=== PATIENT | female | born 1940 | race Caucasian/White ===

== ENCOUNTER 2019-05-03 16:40 | Inpatient (IN) | payer MEDICARE, BC ==
[~2019-05-03] VITALS: Ht 162.6 cm; Wt 59.6 kg
[2019-05-03 18:45] VITALS: BP 187/93
--- NOTE | 2019-05-03 19:10 | NUR ---
Admission Note with Justification for Admission to [facility] Patient admitted to [facility] for protective oversight for emergency stabilization of acute psychiatric crisis. Pt admitted from: Hospital ER Mode of arrival: EMS Accompanied By: EMS Precipitating behaviors that initiated intake and admission: Agitation, paranoia, threatening family; threatened spouse with scissors, physically aggressive toward spouse- he is afraid to stay in house with her, police have been called because pt was entering neighbors houses, throwing things and breaking items in home. Description of failure of out patient attempts at stabilization in previous setting list behavior and medication trials: Taken to ER Behaviors and assessment findings upon admission: calm, pleasantly confused, cooperative Plan: Admit for protective oversight for adjustment and stabilization of medications, behaviors and mood. Intense treatment regimen including groups, medication adjustments, therapy, consistent regimen for ADL's, self care, and sleep hygiene. Daily monitoring by Inpatient staff, Psychiatry, and Medical Physician.
[2019-05-03] MEDS ORDERED: MAG HYDROX/AL HYDROX/SIMETH 30 ML ORAL.SUSP PO PRN (19:15)
[2019-05-03] MEDS ORDERED: MAGNESIUM HYDROXIDE 2,400 MG/30 ML ORAL.SUSP. PO PRN (19:15)
[2019-05-03] MEDS ORDERED: METHYL SALICYLATE/MENTHOL TOPICAL OINTMENT 57GM TUBE. TP PRN (19:15)
[2019-05-03] MEDS ORDERED: DILT180C64 PO (20:03)
[2019-05-03] MEDS ORDERED: OMEP40CA45 PO (20:03)
[2019-05-03] MEDS ORDERED: GLIP5TAB10 PO (20:03)
[2019-05-03] MEDS ORDERED: WARF-31 PO (20:03)
[2019-05-03] MEDS ORDERED: CLOP75TA PO (20:03)
[2019-05-03] MEDS ORDERED: TRAM-48 PO (20:03)
[2019-05-03] MEDS ORDERED: LOSA1TAB19 PO (20:03)
[2019-05-03] MEDS ORDERED: CYCL-331 PO (20:03)
[2019-05-03] MEDS ORDERED: CETI10TA16 PO (20:03)
[2019-05-03] MEDS ORDERED: ALBU2.5V8 IH (20:03)
[2019-05-03] MEDS ORDERED: NITR0.4T22 SL (20:03)
[2019-05-03] MEDS ORDERED: ASPI-630 PO (20:03)
[2019-05-03] MEDS ORDERED: CALC500T30 PO (20:03)
[2019-05-03] MEDS ORDERED: OLAN5TAB5 PO (20:03)
[2019-05-03] MEDS ORDERED: ACET500T68 PO (20:03)
[2019-05-03] MEDS ORDERED: TRIA15CR50 TP (20:03)
[2019-05-03] MEDS ORDERED: DONE5TAB7 PO (20:03)
[2019-05-03] MEDS ORDERED: LEVO125T5 PO (20:03)
[2019-05-03] MEDS ORDERED: CLOB15CR TP (20:03)
[2019-05-03] MEDS ORDERED: SPIR25TA PO (20:03)
[2019-05-03] MEDS ORDERED: ATOR40TA59 PO (20:03)
[2019-05-03] MEDS ORDERED: NITROGLYCERIN SUBLINGUAL 0.4 MG BOTTLE OF 25. SL PRN (20:15)
[2019-05-03] MEDS ORDERED: CETIRIZINE HCL 10 MG TABLET PO PRN (20:15)
[2019-05-03] MEDS: ACETAMINOPHEN 500 MG TABLET PO SCH (20:55)
[2019-05-03] MEDS: DONEPEZIL HCL 5 MG TABLET. PO SCH (20:55)
[2019-05-03] MEDS: ASPIRIN 81 MG TAB.CHEW PO SCH (20:55)
[2019-05-03 21:21] LABS: BASO % 0 % (0-3); EOS # 0.3 x10^3/uL (0.0-0.7); EOS % 4 % (0-3); HEMATOCRIT 43.1 % (36.0-47.0); HEMOGLOBIN 14.3 g/dL (12.0-15.5); LYMPH # 1.1 x10^3/uL (1.0-4.8); LYMPH % 13 % (24-48); MEAN CORPUSCULAR HEMOGLOBIN 28 pg (25-35); MEAN CORPUSCULAR HGB CONC 33 g/dL (31-37); MEAN CORPUSCULAR VOLUME 85 fL (79-100); MONO % 0 % (0-9); NEUT # 7.1 x10^3uL (1.8-7.7); NEUT % 82 % (31-73); PLATELET COUNT 277 x10^3/uL (140-400); RED BLOOD COUNT 5.06 x10^6/uL (3.50-5.40); RED CELL DISTRIBUTION WIDTH 15.7 % (11.5-14.5); WHITE BLOOD COUNT 8.6 x10^3/uL (4.0-11.0)
[2019-05-03 21:22] LABS: ALBUMIN 3.6 g/dL (3.4-5.0); ALBUMIN/GLOBULIN RATIO 0.9 (1.0-1.7); CALCIUM 9.2 mg/dL (8.5-10.1); CREATININE 0.8 mg/dL (0.6-1.0); GFR 69.6; MAGNESIUM 2.1 mg/dL (1.8-2.4); POTASSIUM 3.3 mmol/L (3.5-5.1); TOTAL BILIRUBIN 0.6 mg/dL (0.2-1.0); TOTAL PROTEIN 7.8 g/dL (6.4-8.2)
--- NOTE | 2019-05-03 21:27 | PDOC ---
Exam Note: Eren Note: Please also refer to the separate dictated note~for this date of service dictated separately. Discussed the patient with Nursing staff reviewed the chart.~Reviewed interim history and current functioning. Reviewed vital signs,~Labs/ Radiology~and current medications noted below. Continue current treatment with the changes noted in the dictated addendum note Assessment: Labs: Laboratory Tests Test 05/03/19 19:10 05/03/19 20:50 Glucose (Fingerstick) 119 mg/dL (70-99) H White Blood Count 8.6 x10^3/uL (4.0-11.0) Red Blood Count 5.06 x10^6/uL (3.50-5.40) Hemoglobin 14.3 g/dL (12.0-15.5) Hematocrit 43.1 % (36.0-47.0) Mean Corpuscular Volume 85 fL (79-100) Mean Corpuscular Hemoglobin 28 pg (25-35) Mean Corpuscular Hemoglobin Concent 33 g/dL (31-37) Red Cell Distribution Width 15.7 % (11.5-14.5) H Platelet Count 277 x10^3/uL (140-400) Neutrophils (%) (Auto) 82 % (31-73) H Lymphocytes (%) (Auto) 13 % (24-48) L Monocytes (%) (Auto) 0 % (0-9) Eosinophils (%) (Auto) 4 % (0-3) H Basophils (%) (Auto) 0 % (0-3) Neutrophils # (Auto) 7.1 x10^3uL (1.8-7.7) Lymphocytes # (Auto) 1.1 x10^3/uL (1.0-4.8) Monocytes # (Auto) 0.0 x10^3/uL (0.0-1.1) Eosinophils # (Auto) 0.3 x10^3/uL (0.0-0.7) Basophils # (Auto) 0.0 x10^3/uL (0.0-0.2) Platelet Estimate Pending Sodium Level 139 mmol/L (136-145) Potassium Level 3.3 mmol/L (3.5-5.1) L Chloride Level 101 mmol/L (98-107) Carbon Dioxide Level 30 mmol/L (21-32) Anion Gap 8 (6-14) Blood Urea Nitrogen 17 mg/dL (7-20) Creatinine 0.8 mg/dL (0.6-1.0) Estimated GFR (Cockcroft-Gault) 69.6 BUN/Creatinine Ratio 21 (6-20) H Glucose Level 141 mg/dL (70-99) H Calcium Level 9.2 mg/dL (8.5-10.1) Magnesium Level 2.1 mg/dL (1.8-2.4) Total Bilirubin 0.6 mg/dL (0.2-1.0) Aspartate Amino Transferase (AST) 12 U/L (15-37) L Alanine Aminotransferase (ALT) 14 U/L (14-59) Alkaline Phosphatase 103 U/L (46-116) Total Protein 7.8 g/dL (6.4-8.2) Albumin 3.6 g/dL (3.4-5.0) Albumin/Globulin Ratio 0.9 (1.0-1.7) L Current Medications: Meds: Current Medications Medications (Trade) Dose Ordered Sig/Margarita Route PRN Reason Start Time Stop Time Status Last Admin Dose Admin Donepezil HCl (Aricept) 5 mg HS PO 05/03/19 21:00 05/03/19 20:55 Acetaminophen (Tylenol) 500 mg BID PO 05/03/19 21:00 05/03/19 20:55 Aspirin (Children'S Aspirin) 81 mg HS PO 05/03/19 21:00 05/03/19 20:55 I have reviewed the current psychotropics carefully including drug interactions. Risk benefit ratio favors no change other than as noted in my dictated progress note. YG CASTILLO MD May 03, 2019 21:27
[2019-05-03 21:58] LABS: % ATYL 2 % (0-0); % BANDS 2 % (0-9); % EOS 4 % (0-5); % LYMPHS 14 % (24-48); % METAS 2 % (0-0); % MONOS 1 % (0-10); % SEGS 75 % (35-66)
[2019-05-03 22:00] LABS: ANISOCYTOSIS SLIGHT
[2019-05-03 22:01] LABS: PLT ESTIMATE ADEQUATE (ADEQUATE); POIKILOCYTOSIS SLIGHT
[2019-05-04 01:59] LABS: BILIRUBIN,URINE NEG (NEG); CLARITY,URINE HAZY; COLOR,URINE STRAW; GLUCOSE,URINE NEG (NEG)
[2019-05-04 02:00] LABS: BACTERIA,URINE FEW /HPF (0-FEW); NITRITE,URINE NEG (NEG); RBC,URINE 0 /HPF (0-2); SQUAMOUS EPITHELIAL CELL,UR FEW /LPF; UROBILINOGEN,URINE 0.2 mg/dL (0.2 mg/dL)
[2019-05-04 05:44] VITALS: BP 148/81
[2019-05-04] MEDS: LEVOTHYROXINE 125 MCG TABLET PO SCH (05:45)
[2019-05-04] MEDS ORDERED: FLU VAX QS 2019-20 (36MOS+)/PF 0.5 ML SYRINGE. VAX IM ONE (09:00)
[2019-05-04] MEDS: LOSARTAN 50 MG TABLET. PO SCH (10:00)
[2019-05-04] MEDS: ATORVASTATIN CALCIUM 20 MG TABLET PO SCH (10:01)
[2019-05-04] MEDS: SPIRONOLACTONE 25 MG TABLET PO SCH (10:02)
[2019-05-04] MEDS: hydroCHLOROthiazide 12.5 MG CAPSULE PO SCH (10:02)
[2019-05-04] MEDS: PANTOPRAZOLE 40 MG TABLET. PO SCH (10:03)
[2019-05-04] MEDS: ACETAMINOPHEN 500 MG TABLET PO SCH ×2 (10:03→19:32)
[2019-05-04] MEDS: CLOPIDOGREL BISULFATE 75 MG TABLET PO SCH (10:03)
[2019-05-04] MEDS: CALCIUM CARBONATE 500 MG TABLET PO SCH (10:07)
[2019-05-04] MEDS: glipiZIDE 5 MG TABLET PO SCH ×2 (10:07→17:33)
[2019-05-04 12:06] LABS: THYROXINE 7.4 ug/dL (4.5-12.0)
--- NOTE | 2019-05-04 12:44 | PN ---
DATE: 05/04/2019 SUBJECTIVE: The patient was seen today, met with the staff, chart reviewed, and also covering for Dr. Najera. Staff reports increased paranoia and also exhibiting manic-like behaviors, accusing of a man getting mixed up with her son and her and taking all her money. The patient is also confused, but able to interact fairly well on 1:1. The patient also has high energy, increased psychomotor activity. OBSERVATION: VITAL SIGNS: Temperature 97.8, blood pressure 148/81, pulse 66, respirations 18, O2 sat 92%. Slept only about 2 hours last night. LABORATORY DATA: The patient's lab reviewed. No significant abnormalities except slight increase in BUN 21. Glucose fluctuated from 119 to 196. The patient's liver enzymes were not elevated. The patient's urinalysis was within normal limits. MEDICATIONS: The patient's current medications include olanzapine 2.5 mg daily, Aricept 5 mg at night. The patient is also on levothyroxine 125 mcg daily, spironolactone 25 mg daily, Cardizem 24-hour CD 180 mg daily, and glipizide 5 mg b.i.d. The patient's behavior is appropriate during the assessment, but the patient is confused. She was mixing up with her son and her and the patient did not know the date or time and the patient thought [place] the [place]. The patient also exhibited pressured speech, expansive mood, racing thoughts, and also delusional thinking. The patient denied of feeling depressed and also suicidal or homicidal thoughts. The patient has been verbally aggressive at times. The patient apparently has a fixed delusion, but mostly that her son and is stealing all the money. ASSESSMENT: 1. Bipolar disorder, manic phase with psychotic symptoms. 2. Rule out dementia, most likely vascular with delusions. PLAN: The patient will be under observation. We will continue to evaluate the patient's progress and also change of medication accordingly. LENGTH OF STAY: 7-10 days. CASSANDRA BAHENA MD DR: ROGELIO/sherif JOB#: [id number] / [id number]
[2019-05-04 12:59] LABS: THYROID STIM HORMONE (TSH) 4.21 uIU/mL (0.358-3.740)
[2019-05-04 15:32] VITALS: BP 121/79
[2019-05-04] MEDS ORDERED: DEXTROSE 50% 25 GM / 50ML DISP.SYRIN. IV PRN (16:00)
[2019-05-04] MEDS: INSULIN LISPRO 300 UNITS/3 ML VIAL. SQ SCH (17:00)
[2019-05-04] MEDS: WARFARIN 5 MG TABLET. PO SCH (17:33)
[2019-05-04] MEDS: ASPIRIN 81 MG TAB.CHEW PO SCH (19:31)
[2019-05-04] MEDS: DONEPEZIL HCL 5 MG TABLET. PO SCH (19:31)
--- NOTE | 2019-05-04 19:32 | NUR ---
Pt. slept late, ate breakfast in dayroom at 1000 while I assessed and gave a.m. meds. Pt. has fixed delusion of her brother trying to kill her father and taking all the money. She also has worried about who is taking care of the pets. All attempts to reorient have failed. 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 Son has called twice today to check on his mother and provide info. Pt. is poor historian and totally confused with no accurate memory. Disoriented X4. Her and she did live together until she was recently hospitalized at [facility] for pneumonia. Then her forgetfulness increased and total disorientation began. Pt. has not returned to her baseline since admitted to [facility], per her son. would like to speak with her on the phone. And son has brought up her clothing, which all needs to be laundered before she can wear anything. After inital evaluation, she has been withdrawn to her room, or sitting quietly in the dayroom. Has refused to eat since early a.m. breakfast. Calm and compliant and cooperative, but suspicious of medications.
--- NOTE | 2019-05-04 21:31 | NUR ---
Nursing note: Assumed care of pt in the day room where she was visiting with a peer. She is pleasantly confused, compliant with meds and assessment, delusional about family. She believes her family are keeping money from her and speaks of her brother trying to kill her father. She also thinks she lives "just right over there." She has no c/o pain, no negative behaviors.
--- NOTE | 2019-05-04 22:53 | CONS ---
DATE OF CONSULTATION: 05/04/2019 REASON FOR CONSULTATION: Medical management. HISTORY OF PRESENT ILLNESS: The patient is a 78-year-old female patient who lives at home and was evaluated at [facility] and was [facility] on account of increased confusion over the last 2 weeks, leaving house and entering neighbor's house, swearing at family, delusional, thinks that there is a large sum of money that family is hiding that she is entitled to. States that she wants to slit the 's throat, threatened to attack family with scissors, delusional, thinks she is a nurse, refusing medication, all this in a background of impulse control disorder. PAST MEDICAL HISTORY: Significant for atrial fibrillation, osteoarthritis, eczema, chronic obstructive pulmonary disease, coronary artery disease, DVT, hyperlipidemia, hypertension, hypothyroidism, macular degeneration, myocardial infarction, obstructive sleep apnea, TIA, and diabetes mellitus. PAST SURGICAL HISTORY: Unremarkable. ALLERGIES: She is allergic to LISINOPRIL AND MOXIFLOXACIN. MEDICATIONS: She is currently on following medications: She is on cetirizine 10 mg once a day, Aricept 5 mg at bedtime, albuterol sulfate 2 puffs every 4 hours as needed, cyclobenzaprine 10 mg 3 times a day as needed, warfarin 5 mg daily with supper, Plavix 75 mg once a day, atorvastatin calcium 40 mg daily, nitroglycerin 0.4 mg sublingually every 5 minutes x 3, diltiazem ER 180 mg once a day, losartan/hydrochlorothiazide 50/12.5 mg once a day, spironolactone 25 mg once a day, aspirin 81 mg once a day, tramadol 50 mg every 6 hours, acetaminophen 500 mg twice a day, olanzapine for Zyprexa 2.5 mg daily. She is also on omeprazole 40 mg once a day, calcium carbonate 500 mg daily, glipizide 5 mg twice a day with meals, levothyroxine sodium 125 mcg once a day, clobetasol propionate cream applied topically twice a day and triamcinolone acetonide cream applied topically twice a day. FAMILY HISTORY: Noncontributory. SOCIAL HISTORY: She is , has 1 son. Did have a son that committed suicide years ago. She quit smoking about 20 years ago when she started smoking recently. Drinks alcohol occasionally. She used to be a nurse. PHYSICAL EXAMINATION: GENERAL: When I examined her, the patient was resting flat in bed comfortably, in no apparent distress. No pallor, jaundice, cyanosis or thyromegaly. No jugular venous distention. No lower limb edema. VITAL SIGNS: Her heart rate was 98, blood pressure 121/79, temperature was 97.2, respiratory rate was 16, and oxygen saturation was 93%. HEAD, EYES, EARS, NOSE AND THROAT: Showed normocephalic, atraumatic. NECK: Supple. HEART: Showed normal first and second heart sounds with no gallop, rub or murmur. CHEST: Clear to auscultation. No crepitation or rhonchi. ABDOMEN: Distended, soft, nontender. NEUROLOGIC: She is awake, alert and definitely delusional, but without any obvious lateralizing sign. All cranial nerves intact. EXTREMITIES: She moves extremities without difficulty. She ambulates without assistance or assistive devices. LABORATORY DATA: Her lab work showed a white cell count of 8600, hemoglobin 14, hematocrit 43, MCV 85 and platelet count 277,000 with normal manual differential. Her chemistry showed a serum sodium of 139, potassium 3.3, chloride 101, bicarbonate 30, anion gap of 8, BUN 17, creatinine 0.8, estimated GFR was 69 mL per minute. Her glucose of 141, calcium of 9.2, magnesium 2.1. Total bilirubin, AST, ALT, alkaline phosphatase were normal. Her total protein was 7.8, albumin 3.6. Her serum iron 47, TIBC was high at 305 and iron saturation was 15%. Her total T4 and total T3 are well within normal range. TSH was also normal at 4.120. Her serum triglycerides 253, total cholesterol 245, LDL was 165, VLDL was 50, HDL was 30 and the ratio was 8. Her prothrombin time and INR are within normal range. Urinalysis was essentially unremarkable. IMPRESSION: In summary, this is a 78-year-old female patient who normally lives at home with her and was evaluated at [facility] and was transferred to this facility on account of increased confusion over the last 2 weeks, leaving the house and entering the neighbor's houses, swearing at the family, delusional, thinks that there is a large sum of money the family is hiding that she is entitled. States that she wants to slit 's throat and threatened the family with scissors, delusional, thinks she is a nurse and refusing medication, all this in a background of obviously impulse control disorder. She is here for inpatient psychiatric stabilization. Medically, she has a multitude of medical problems that seemed to be stable. She has atrial fibrillation that is rate controlled and for which she is on warfarin and rate is controlled with diltiazem. Hypertension, hyperlipidemia and DVT for which she is also on Coumadin. Senile macular degeneration, hypothyroidism for which she is also on levothyroxine. So, all in all, the patient seems to be medically stable. The only abnormal finding is that her serum potassium is low at 3.3 and her INR was supratherapeutic at 1.1. PLAN: My plan is to adjust her Coumadin, started on potassium supplement and to achieve at least an INR of 2-2.5. Thank you, Dr. Najera for allowing me to participate in the care of this patient. DEMARCO CARY MD DR: JESSICA/sherif JOB#: [id number] / [id number]
--- NOTE | 2019-05-05 04:00 | EKG ---
[address] [address] Test Date: 2019-05-04 Test Time: 09:34:01 Pat Name: WENDY SCHWARTZ Department: Room: [address] [place] [address] Gender: F Tech Intern: WILLIAM : 1940 Requested By: YG CASTILLO Order Number: [id number] Reading MD: Yogesh Singh MD Measurements Intervals [place] Rate: 66 P: CA: QRS: 15 QRSD: 76 T: 163 QT: 416 QTc: 438 Interpretive Statements SR CONSIDER LATERAL ISCHEMIA Electronically Signed On 06-05-2019 9:59:49 ASSISTED LIVING ADMINISTRATOR by Yogesh Singh MD
[2019-05-05] MEDS: LEVOTHYROXINE 125 MCG TABLET PO SCH (04:45)
[2019-05-05 05:37] VITALS: BP 101/56
[2019-05-05 05:37] LABS: HEMOGLOBIN A1C 7.8 % (4.8-5.6)
[2019-05-05] MEDS: INSULIN LISPRO 300 UNITS/3 ML VIAL. SQ SCH ×3 (08:00→17:00)
[2019-05-05] MEDS: glipiZIDE 5 MG TABLET PO SCH ×2 (08:50→16:19)
[2019-05-05] MEDS: ACETAMINOPHEN 500 MG TABLET PO SCH ×2 (08:50→20:24)
[2019-05-05] MEDS: ATORVASTATIN CALCIUM 20 MG TABLET PO SCH (08:50)
[2019-05-05] MEDS: LOSARTAN 50 MG TABLET. PO SCH (08:53)
[2019-05-05] MEDS: PANTOPRAZOLE 40 MG TABLET. PO SCH (08:54)
[2019-05-05] MEDS: hydroCHLOROthiazide 12.5 MG CAPSULE PO SCH (08:54)
[2019-05-05] MEDS: CLOPIDOGREL BISULFATE 75 MG TABLET PO SCH (08:54)
[2019-05-05] MEDS: CALCIUM CARBONATE 500 MG TABLET PO SCH (08:54)
[2019-05-05] MEDS: SPIRONOLACTONE 25 MG TABLET PO SCH (08:55)
[2019-05-05] MEDS: CYCLOBENZAPRINE 10 MG TABLET. PO PRN (10:23)
[2019-05-05] MEDS: WARFARIN 5 MG TABLET. PO SCH (16:00)
[2019-05-05 16:08] VITALS: BP 112/71
--- NOTE | 2019-05-05 16:21 | NUR ---
Continues delusional about family members, names change consistently. Thinks her brother is going to kill her father for the money. Also thinks her son James is the one dictating all of her medications. PRN Zyprexa, first dose given today at 1300, and it has appeared to slightly calm her. However she has been given a sheet of paper to document her concerns, even after speaking to the homeland security program specialist here on rounds, she also spoke with her on phone this morning. Son, related that her home has been a hokalpesher's mess, and every time he attempts to clean or organize she gets angry, and fills it back up with "trash". Pt. has been observed to celestino used briefs. putting them on over her clothing or a new dry brief. Will need to monitor closely as she now has 4 lo in her closet and states a bra in her closet is not hers. More compliant this afternoon with medications, and allows labs to be drawn if reminded they are needed for her coumadin. Not oriented to anything but self at this time. Social with peers. Son advised to give her a few days for medications to begin to work before visiting or having friends and family call or visit. He agreed.
--- NOTE | 2019-05-05 17:56 | NUR ---
Pt. adamantly refused her insulin. States "you're crazy, I want to see my Dr.!" Ate partial supper, and sits at table watching others, but not interacting.
[2019-05-05] MEDS: ASPIRIN 81 MG TAB.CHEW PO SCH (20:24)
[2019-05-05] MEDS: DONEPEZIL HCL 5 MG TABLET. PO SCH (20:24)
--- NOTE | 2019-05-05 21:05 | PN ---
DATE: 05/05/2019 SUBJECTIVE: The patient was seen today, met with the staff, chart reviewed. Staff reports increased behavior problems, being delusional, paranoid, not trusting anyone. Also hyperverbal, demanding, increased psychomotor activity. OBSERVATION: VITAL SIGNS: Temperature 97.6, blood pressure 101/56, pulse 53, respirations 20, O2 sat 90%. Slept about 7 hours last night. The patient's appetite is normal. The patient is not having any physical complaints. LABORATORY DATA: The patient's lab reviewed. MEDICATIONS: The patient's current medications include olanzapine 2.5 mg daily, Aricept 5 mg at night. ASSESSMENT: 1. Bipolar disorder, manic phase with psychotic symptoms. 2. Rule out dementia, most likely vascular with delusions. PLAN: To continue with the treatment. The patient's medications reviewed. The patient's Zyprexa was increased to 5 mg at night and also Zyprexa 2.5 mg q. 4 hours p.r.n. because of increasingly delusional and manic behaviors. Plan to continue the plans. LENGTH OF STAY: 7-10 days. CASSANDRA BAHENA MD DR: ROGELIO/sherif JOB#: [id number] / [id number]
--- NOTE | 2019-05-05 22:24 | HP ---
ADMIT DATE: 05/03/2019 PSYCHIATRIC ADMISSION HISTORY/EVALUATION This is a late entry, date of service 05/03/2019, covers elements not covered in my initial note. I met with the patient evening of 05/03/2019 shortly after she arrived on the unit. Discussed with nursing staff, reviewed the chart, previously discussed with Bettina Antunez, docent coordinator. IDENTIFYING DATA: The patient is a 78-year-old female, referred to us from [facility], referred by primary care physician, , after she was brought to the emergency room by her son due to aggressive behaviors and agitation. The patient had been living at home with her and has had increased confusion for the past 2 weeks, leaving her home and entering the neighbor's houses. She was swearing at family's delusional thinking that there was a large sum of money that the family is hiding and that she is entitled to. She states she wanted to slit her 's throat, threatening to attack family with scissors, delusional, thinking she was a nurse, refusing medications. Reportedly, the patient has had a recent pneumonia and documented diagnosis of dementia per history from the family. CHIEF COMPLAINT: "I cannot hear. There is a million dollars hiding." HISTORY OF PRESENT ILLNESS: The patient has a history of dementia, Alzheimer's vascular type. She has been residing at home with her , recently getting more paranoid, delusional, extremely grandiose, and labile. She has had sleep and appetite changes. She does admit to wanting to throttle her and slit his throat because she is so angry at him. She also states that she was deemed to be in a potential danger to her , unable to be safely cared for in the home, resulting in the referral to the ER and then to us. She smokes 2 packets of cigarettes a day. PAST PSYCHIATRIC HISTORY: As above. MEDICAL HISTORY: Positive for atrial fibrillation, carotid artery calcification on the left side. Contact dermatitis, COPD, coronary artery disease, history of DVT, chronic headaches, hyperlipidemia, hypertension, hypothyroidism, long-term use of anticoagulants, macular degeneration, malignant neoplasm of the urinary bladder, status post OR, obstructive sleep apnea, chronic pain, thyroid dysfunction, history of TIA, type 2 diabetes mellitus, sleep apnea. PAST SURGICAL HISTORY: Appendectomy, cystoscopy, bladder biopsy, history of tonsillectomy, tubal ligation. CODE STATUS: DNR. ALLERGIES: LISINOPRIL, MOXIFLOXACIN. ACCU-CHEKS: Before meals and at bedtime. DIET: Regular. Ambulates ad ismael. UA 05/03/2019 negative at [facility]. CURRENT PSYCHOTROPICS: Zyprexa 2.5 mg daily. FAMILY HISTORY: Positive for coronary artery disease, aneurysm. SOCIAL HISTORY: No history of alcohol, drug abuse, physical, sexual or elder abuse. She is not known to be a perpetrator. REACTION TO HOSPITALIZATION: The patient accepting of it. REVIEW OF SYSTEMS: Hard of hearing. No CV, , pulmonary, eye system symptoms on review. Reliability poor. MENTAL STATUS EXAMINATION: The patient is oriented to herself. Insight, judgment, recent and remote memory, attention, concentration, fund of knowledge poor, consistent with her diagnosis. She is quite hyperverbal, somewhat hard of hearing, anxious, distractable, quite grandiose, labile. No active suicidal or homicidal ideation. LABORATORY DATA: Reviewed. IMPRESSION: Major neurocognitive disorder, Alzheimer, vascular with delusion, depression, behavioral disturbance; anxiety disorder, unspecified; impulse control disorder, unspecified. Rest as noted above. PLAN: Admit to geropsychiatry unit at [facility]. I will see the patient daily individually from a psychiatric standpoint. Medical followup with Dr. Sawyer. Dr. Aquino will cover for me for the next 2 days while I am on vacation. Observe patient's baseline, then adjust psychotropics as clinically indicated. Time for discharge day management greater than 30 minutes. MAN Erika CASTILLO MD DR: OTTONIEL/sherif JOB#: [id number] / [id number]
[2019-05-05] MEDS: traMADol 50 MG TABLET PO PRN (22:31)
--- NOTE | 2019-05-06 00:13 | NUR ---
Pt has been very confused and delusional this shift, she has said various people are stealing money, killing her dog, killing kids. Most of the time she can be redirected for a short while. After going to bed she was restless, PRN given and she is sleeping now. She has taken her meds whole with some prompting and explanation.
[2019-05-06] MEDS: LEVOTHYROXINE 125 MCG TABLET PO SCH (05:35)
[2019-05-06 05:48] VITALS: BP 145/73
[2019-05-06] MEDS: INSULIN LISPRO 300 UNITS/3 ML VIAL. SQ SCH ×3 (08:00→17:36)
[2019-05-06] MEDS: ATORVASTATIN CALCIUM 20 MG TABLET PO SCH (08:20)
[2019-05-06] MEDS: CLOPIDOGREL BISULFATE 75 MG TABLET PO SCH (08:20)
[2019-05-06] MEDS: ACETAMINOPHEN 500 MG TABLET PO SCH ×2 (08:20→20:02)
[2019-05-06] MEDS: SPIRONOLACTONE 25 MG TABLET PO SCH (08:21)
[2019-05-06] MEDS: hydroCHLOROthiazide 12.5 MG CAPSULE PO SCH (08:21)
[2019-05-06] MEDS: LOSARTAN 50 MG TABLET. PO SCH (08:21)
[2019-05-06] MEDS: CALCIUM CARBONATE 500 MG TABLET PO SCH (08:22)
[2019-05-06] MEDS: PANTOPRAZOLE 40 MG TABLET. PO SCH (08:22)
[2019-05-06] MEDS: glipiZIDE 5 MG TABLET PO SCH ×2 (08:22→16:29)
--- NOTE | 2019-05-06 10:15 | NUR ---
ACTIVITY THERAPY ASSESSMENT Completed based on observation and interview. Pt. was agreeable to speak with TRANSPORTATION MECHANIC while she sat in the day room, away from others. She began by sharing concerns about her recently saying that he was going to "make as much money as he's ever seen." She explained it was going to be illegal. Pt. was unable to answer where she was or why she was here. 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 Pt. is hard of hearing and needed TRANSPORTATION MECHANIC to repeat several comments/ questions. Pt. cycled back to delusions about her "" which she said while making the quotation action with her fingers in the air. When asked about leisure interest/ hobbies/ what Pt. does for fun, she chuckled and said he hasn't had "fun for quite awhile." She listed cards, TV, shopping, playing with her Grandson, River, and the puppies. Pt. cycled back to her threatening to kill another family member again. TRANSPORTATION MECHANIC commented Pt. appeared calm; however, Pt. reported she has a lot of stress but she usually just "deals with it." She explained she stays awake at night trying to figure out what's going on. TRANSPORTATION MECHANIC talked about the importance of leisure activities (suggested coloring, word searched, stretching) to help keep Pt's mind focused and engaged to allow her thoughts to relax. Pt. was open to anything to help. TRANSPORTATION MECHANIC provided Pt. with crayons and a few coloring pages and Pt. sat and colored off and on for about 30 minutes after this interview. Pt. will need reading glasses for these sort of activities. Pt. tends to sit alone in the day room. Initial goal aimed to increase relaxation and socialization: Pt. will participate in at least five Activity Therapy individual or group sessions before discharge. Addendum: 01/09/20 at 1035 by ALONDRA TONY ACT Goal changed 05/16: Pt. will participate in at least five Activity Therapy groups per week
--- NOTE | 2019-05-06 12:52 | NUR ---
Nursing note: Pt in dining room for morning meds and assessment. Pt compliant with meds whole without needing much encouragement. She was cooperative with her assessment. Pt is pleasantly confused and currently in the dining room eating lunch. Will continue to monitor.
[2019-05-06 15:50] VITALS: BP 137/83
[2019-05-06] MEDS: WARFARIN 5 MG TABLET. PO SCH (16:00)
[2019-05-06] MEDS: ASPIRIN 81 MG TAB.CHEW PO SCH (20:02)
[2019-05-06] MEDS: DONEPEZIL HCL 10 MG TABLET PO SCH (20:02)
--- NOTE | 2019-05-06 21:08 | PDOC ---
Exam Note: Eren Note: Please also refer to the separate dictated note~for this date of service dictated separately.~Patient seen individually. Discussed the patient with Nursing staff reviewed the chart.~Reviewed interim history and current functioning. Reviewed vital signs,~Labs/ Radiology~and current medications noted below. Continue current treatment with the changes noted in the dictated addendum note Assessment: Vital Signs/I&O: Vital Signs Date Time Temp Pulse Resp B/P (MAP) Pulse Ox O2 Delivery O2 Flow Rate FiO2 05/06/19 15:50 97.0 54 20 137/83 (101) 94 05/05/19 23:40 Room Air I & O 05/05/19 05/05/19 05/06/19 15:00 23:00 07:00 Intake Total 360 ml 240 ml 120 ml Balance 360 ml 240 ml 120 ml Labs: Laboratory Tests Test 05/06/19 06:40 05/06/19 07:50 05/06/19 11:42 05/06/19 16:46 Prothrombin Time 14.4 SEC (9.4-11.4) H Prothrombin Time INR 1.4 (0.9-1.1) H Glucose (Fingerstick) 145 mg/dL (70-99) H 102 mg/dL (70-99) H 156 mg/dL (70-99) H Test 05/06/19 19:36 Glucose (Fingerstick) 150 mg/dL (70-99) H Current Medications: Meds: Current Medications Medications (Trade) Dose Ordered Sig/Margarita Route PRN Reason Start Time Stop Time Status Last Admin Dose Admin Donepezil HCl (Aricept) 10 mg QHS PO 05/06/19 21:00 05/06/19 20:02 I have reviewed the current psychotropics carefully including drug interactions. Risk benefit ratio favors no change other than as noted in my dictated progress note. Diagnosis: Problems: (1) Anxiety disorder (2) Dementia, vascular, with delusions (3) Dementia, vascular, with depression (4) Dementia in Alzheimer's disease with delusions (5) Dementia in Alzheimer's disease with depression (6) Impulse control disorder YG CASTILLO MD May 06, 2019 21:08
--- NOTE | 2019-05-07 00:40 | NUR ---
Pt in day room in the evening she was very confused but pleasant and cooperative. She took meds whole without difficulty. She went to bed quietly and has been sleeping well.
[2019-05-07 05:14] VITALS: BP 150/78
[2019-05-07] MEDS: LEVOTHYROXINE 125 MCG TABLET PO SCH (05:50)
[2019-05-07] MEDS: INSULIN LISPRO 300 UNITS/3 ML VIAL. SQ SCH ×3 (08:00→17:24)
[2019-05-07] MEDS: CLOPIDOGREL BISULFATE 75 MG TABLET PO SCH (08:47)
[2019-05-07] MEDS: SPIRONOLACTONE 25 MG TABLET PO SCH (08:47)
[2019-05-07] MEDS: ATORVASTATIN CALCIUM 20 MG TABLET PO SCH (08:47)
[2019-05-07] MEDS: hydroCHLOROthiazide 12.5 MG CAPSULE PO SCH (08:47)
[2019-05-07] MEDS: ACETAMINOPHEN 500 MG TABLET PO SCH ×2 (08:47→19:37)
[2019-05-07] MEDS: glipiZIDE 5 MG TABLET PO SCH ×2 (08:48→16:18)
[2019-05-07] MEDS: SERTRALINE 25 MG TABLET. PO SCH (08:48)
[2019-05-07] MEDS: LOSARTAN 50 MG TABLET. PO SCH (08:48)
[2019-05-07] MEDS: PANTOPRAZOLE 40 MG TABLET. PO SCH (08:49)
[2019-05-07] MEDS: CALCIUM CARBONATE 500 MG TABLET PO SCH (08:49)
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
[2019-05-07 16:13] VITALS: BP 119/71
[2019-05-07] MEDS: WARFARIN 5 MG TABLET. PO SCH (16:18)
[2019-05-07] MEDS: DONEPEZIL HCL 10 MG TABLET PO SCH (19:37)
[2019-05-07] MEDS: ASPIRIN 81 MG TAB.CHEW PO SCH (19:37)
--- NOTE | 2019-05-07 21:26 | PDOC ---
Exam Note: Eren Note: Please also refer to the separate dictated note~for this date of service dictated separately.~Patient seen individually. Discussed the patient with Nursing staff reviewed the chart.~Reviewed interim history and current functioning. Reviewed vital signs,~Labs/ Radiology~and current medications noted below. Continue current treatment with the changes noted in the dictated addendum note Assessment: Vital Signs/I&O: Vital Signs Date Time Temp Pulse Resp B/P (MAP) Pulse Ox O2 Delivery O2 Flow Rate FiO2 05/07/19 16:13 98.3 77 16 119/71 (87) 92 05/05/19 23:40 Room Air I & O 05/06/19 05/06/19 05/07/19 15:00 23:00 07:00 Intake Total 720 ml 360 ml Balance 720 ml 360 ml Labs: Laboratory Tests Test 05/07/19 07:19 05/07/19 07:22 05/07/19 11:57 05/07/19 16:48 Prothrombin Time 16.1 SEC (9.4-11.4) H Prothrombin Time INR 1.6 (0.9-1.1) H Glucose (Fingerstick) 120 mg/dL (70-99) H 169 mg/dL (70-99) H 170 mg/dL (70-99) H Test 05/07/19 19:41 Glucose (Fingerstick) 129 mg/dL (70-99) H Current Medications: Meds: Current Medications Medications (Trade) Dose Ordered Sig/Margarita Route PRN Reason Start Time Stop Time Status Last Admin Dose Admin Sertraline HCl (Zoloft) 25 mg DAILY PO 05/07/19 09:00 05/09/19 21:00 05/07/19 08:48 I have reviewed the current psychotropics carefully including drug interactions. Risk benefit ratio favors no change other than as noted in my dictated progress note. Diagnosis: Problems: (1) Anxiety disorder (2) Dementia, vascular, with delusions (3) Dementia, vascular, with depression (4) Dementia in Alzheimer's disease with delusions (5) Dementia in Alzheimer's disease with depression (6) Impulse control disorder YG CASTILLO MD May 07, 2019 21:26
--- NOTE | 2019-05-07 22:40 | NUR ---
Last evening pt sat in day room visiting with peer. She was pleasant and cooperative. Very confused and delusional but took meds whole without difficulty. No behaviors tonight.
[2019-05-08 05:07] VITALS: BP 123/61
[2019-05-08] MEDS: LEVOTHYROXINE 125 MCG TABLET PO SCH (05:25)
[2019-05-08] MEDS: INSULIN LISPRO 300 UNITS/3 ML VIAL. SQ SCH ×3 (08:03→17:01)
[2019-05-08] MEDS: PANTOPRAZOLE 40 MG TABLET. PO SCH (08:06)
[2019-05-08] MEDS: SERTRALINE 25 MG TABLET. PO SCH (08:06)
[2019-05-08] MEDS: glipiZIDE 5 MG TABLET PO SCH ×2 (08:06→17:11)
[2019-05-08] MEDS: CLOPIDOGREL BISULFATE 75 MG TABLET PO SCH (08:09)
[2019-05-08] MEDS: hydroCHLOROthiazide 12.5 MG CAPSULE PO SCH (08:09)
[2019-05-08] MEDS: ATORVASTATIN CALCIUM 20 MG TABLET PO SCH (08:10)
[2019-05-08] MEDS: SPIRONOLACTONE 25 MG TABLET PO SCH (08:10)
[2019-05-08] MEDS: CALCIUM CARBONATE 500 MG TABLET PO SCH (08:10)
[2019-05-08] MEDS: LOSARTAN 50 MG TABLET. PO SCH (08:10)
[2019-05-08] MEDS: ACETAMINOPHEN 500 MG TABLET PO SCH ×2 (08:10→19:38)
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
[2019-05-08 15:39] VITALS: BP 150/69
[2019-05-08] MEDS: WARFARIN 5 MG TABLET. PO SCH (17:11)
[2019-05-08] MEDS: ASPIRIN 81 MG TAB.CHEW PO SCH (19:38)
[2019-05-08] MEDS: DONEPEZIL HCL 10 MG TABLET PO SCH (19:38)
--- NOTE | 2019-05-08 20:12 | NUR ---
Nursing note: Assumed care of pt in the hallway. She was wandering around looking for her spouse whom she believes is here somewhere. She was compliant with meds but still focused on her red snake-skin purse that she believes was lost here now. She had no complaints of pain or other needs.
--- NOTE | 2019-05-08 20:48 | PDOC ---
Exam Note: Eren Note: Please also refer to the separate dictated note~for this date of service dictated separately.~Patient seen individually. Discussed the patient with Nursing staff reviewed the chart.~Reviewed interim history and current functioning. Reviewed vital signs,~Labs/ Radiology~and current medications noted below. Continue current treatment with the changes noted in the dictated addendum note Assessment: Vital Signs/I&O: Vital Signs Date Time Temp Pulse Resp B/P (MAP) Pulse Ox O2 Delivery O2 Flow Rate FiO2 05/08/19 15:39 98.2 79 18 150/69 (96) 94 05/08/19 05:07 Room Air I & O 05/07/19 05/07/19 05/08/19 15:00 23:00 07:00 Intake Total 480 ml 480 ml Balance 480 ml 480 ml Labs: Laboratory Tests Test 05/08/19 07:21 05/08/19 12:00 05/08/19 16:45 05/08/19 19:04 Glucose (Fingerstick) 135 mg/dL (70-99) H 296 mg/dL (70-99) H 130 mg/dL (70-99) H 190 mg/dL (70-99) H Current Medications: I have reviewed the current psychotropics carefully including drug interactions. Risk benefit ratio favors no change other than as noted in my dictated progress note. Diagnosis: Problems: (1) Anxiety disorder (2) Anxiety disorder (3) Dementia, vascular, with delusions (4) Dementia, vascular, with depression (5) Dementia in Alzheimer's disease with delusions (6) Dementia in Alzheimer's disease with depression (7) Impulse control disorder YG CASTILLO MD May 08, 2019 20:48
[2019-05-09] MEDS: LEVOTHYROXINE 125 MCG TABLET PO SCH (05:06)
[2019-05-09 05:35] VITALS: BP 131/71
[2019-05-09] MEDS: INSULIN LISPRO 300 UNITS/3 ML VIAL. SQ SCH ×3 (08:06→17:43)
[2019-05-09] MEDS: ATORVASTATIN CALCIUM 20 MG TABLET PO SCH (08:20)
[2019-05-09] MEDS: LOSARTAN 50 MG TABLET. PO SCH (08:20)
[2019-05-09] MEDS: CLOPIDOGREL BISULFATE 75 MG TABLET PO SCH (08:20)
[2019-05-09] MEDS: hydroCHLOROthiazide 12.5 MG CAPSULE PO SCH (08:20)
[2019-05-09] MEDS: PANTOPRAZOLE 40 MG TABLET. PO SCH (08:21)
[2019-05-09] MEDS: SPIRONOLACTONE 25 MG TABLET PO SCH (08:21)
[2019-05-09] MEDS: CALCIUM CARBONATE 500 MG TABLET PO SCH (08:21)
[2019-05-09] MEDS: glipiZIDE 5 MG TABLET PO SCH ×2 (08:21→16:18)
[2019-05-09] MEDS: ACETAMINOPHEN 500 MG TABLET PO SCH ×2 (08:21→19:43)
[2019-05-09] MEDS: SERTRALINE 25 MG TABLET. PO SCH (08:21)
--- NOTE | 2019-05-09 09:58 | NUR ---
Patient was in dining room for medications and breakfast. Patient compliant with medications taken whole but has difficulty swallowing large pills. Patient calm, but states that she didn't sleep at all last night. Sleep record indicates that she got 7 hours of sleep. She remains delusional about her reason for being here "it is a mistake" and stated that her son, James, will be coming for her soon. Patient also stated she is tired of being told what to do and wants to go lay down. Patient refused to go to day room for relaxation group and chose to go back to bed instead. Patient was later observed sitting in chair in [facility].
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
--- NOTE | 2019-05-09 12:30 | NUR ---
Patients son/DPOA (Alex) called to check on patient. He asked if he could bring the dog to visit the patient. Nurse advised DPOA he cannot bring any animals into the hospital, as only Human Animal Dunn therapy dogs/cats are permitted. DPOA stated he would bring the dogs shot record, nurse reiterated that NO ANIMALS are allowed. Nurse suggested that DPOA bring a picture of the dog for the patient. DPOA stated he and patients spouse might come visit this weekend but will call first.
--- NOTE | 2019-05-09 13:03 | NUR ---
WEEKLY ACTIVITY THERAPY NOTE Date of Admission: 05/03/2019 Date of AT Assessment: 05/06/2019 Goal aimed: to increase relaxation and socialization Initial Goal: Pt. will participate in at least five Activity Therapy individual or group sessions before discharge. Weekly progress towards goal: 06/12 (05/07-JOSE libertarian, 05/08-aquarium DVD Group participation level: full on 05/07, minimal on 05/08 Weekly highlights: danced during JOSE libertarian Behaviors observed: confused, increased relaxation and engagement as week progressed, smiling often, wandering, social with peers Plan: no change to goal Beneficial adaptations:
[2019-05-09] MEDS: ACETAMINOPHEN 325 MG TABLET PO PRN (13:51)
--- NOTE | 2019-05-09 13:57 | NUR ---
Patient reports leg pain. Nothing visible on examination of leg, she is not able to indicate exact area, just proximity. PRN Tylenol given for pain per order. Patient borrowed a pair of readers from [facility] so she can read a magazine because she is "so bored".
[2019-05-09 16:14] VITALS: BP 145/53
[2019-05-09] MEDS: WARFARIN 5 MG TABLET. PO SCH (16:18)
[2019-05-09] MEDS: DONEPEZIL HCL 10 MG TABLET PO SCH (19:43)
[2019-05-09] MEDS: ASPIRIN 81 MG TAB.CHEW PO SCH (19:43)
--- NOTE | 2019-05-09 20:31 | NUR ---
Nursing note: Assumed care of pt in te day room. She was calm and pleasant, visiting with peers. She was compliant and no noticeable delusions, no c/o pain/ no behaviors.
--- NOTE | 2019-05-09 21:09 | PDOC ---
Exam Note: Eren Note: Please also refer to the separate dictated note~for this date of service dictated separately.~Patient seen individually. Discussed the patient with Nursing staff reviewed the chart.~Reviewed interim history and current functioning. Reviewed vital signs,~Labs/ Radiology~and current medications noted below. Continue current treatment with the changes noted in the dictated addendum note Assessment: Vital Signs/I&O: Vital Signs Date Time Temp Pulse Resp B/P (MAP) Pulse Ox O2 Delivery O2 Flow Rate FiO2 05/09/19 16:14 98.1 63 20 145/53 (83) 96 Room Air I & O 05/08/19 05/08/19 05/09/19 15:00 23:00 07:00 Intake Total 960 ml 480 ml 120 ml Balance 960 ml 480 ml 120 ml Labs: Laboratory Tests Test 05/09/19 07:28 05/09/19 11:58 05/09/19 16:59 05/09/19 19:11 Glucose (Fingerstick) 136 mg/dL (70-99) H 179 mg/dL (70-99) H 275 mg/dL (70-99) H 209 mg/dL (70-99) H Current Medications: I have reviewed the current psychotropics carefully including drug interactions. Risk benefit ratio favors no change other than as noted in my dictated progress note. Diagnosis: Problems: (1) Anxiety disorder (2) Dementia, vascular, with delusions (3) Dementia, vascular, with depression (4) Dementia in Alzheimer's disease with delusions (5) Dementia in Alzheimer's disease with depression (6) Impulse control disorder YG CASTILLO MD May 09, 2019 21:08
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
--- NOTE | 2019-05-10 00:56 | PN ---
DATE: 05/06/2019 PSYCHIATRIC PROGRESS NOTE This late entry 05/06/2019 covers elements not covered in my initial note. SUBJECTIVE: I met with the patient in the evening. Per EFREN Townsend, the patient slept 6-1/4 hours previous night. Reviewed information from Dr. Aquino, who covered for me for the last couple of days. The patient remains confused, somewhat delusional, someone is stealing her things and became combative, hallucination, has been intermittently having some hallucinations. She in fact slept 4 hours previous night, believed someone murdered her brother and kids are in the snow. REVIEW OF SYSTEMS: No CV, , pulmonary, eye, ENT system symptoms on review. Reliability poor. MENTAL STATUS EXAM: Oriented to herself. Insight, judgment, recent and remote memory, attention, concentration, fund of knowledge poor, consistent with her diagnosis mentioned in my initial note. PLAN: Increase Zyprexa from 2.5 mg daily to 5 mg at bedtime. Start Aricept 5 mg a day, increasing to 10 mg a day, Zoloft 25 mg a day, start increasing to 50 mg a day in 3 days for her mood and anxiety, obsessive symptoms. Reviewed all of this at length including various treatment options. Adjust further as clinically indicated. YG CASTILLO MD DR: OTTONIEL/sherif JOB#: [id number] / [id number]
--- NOTE | 2019-05-10 01:11 | PN ---
DATE: 05/07/2019 PSYCHIATRIC PROGRESS NOTE This late entry 05/07/2019 covers the elements not covered in my initial note. SUBJECTIVE: I met with the patient in the evening of 05/07/2019. Per EFREN Gasca, the patient slept 6-1/2 hours previous night. She has been somewhat delusional, believed someone is stealing her things, becomes combative, hallucinating, looking at things in the toilet. REVIEW OF SYSTEMS: No CV, , pulmonary, eye, ENT system symptoms on review. Reliability poor. MENTAL STATUS EXAM: Oriented to herself. Insight, judgment, recent and remote memory, attention, concentration, fund of knowledge poor, consistent with her diagnosis mentioned in my initial note. PLAN: No change from initial note. MAN Erika CASTILLO MD DR: OTTONIEL/sherif JOB#: [id number] / [id number]
[2019-05-10 04:48] VITALS: BP 148/73
[2019-05-10] MEDS: LEVOTHYROXINE 125 MCG TABLET PO SCH (04:54)
[2019-05-10 07:56] LABS: ALBUMIN 3.3 g/dL (3.4-5.0); CALCIUM 8.6 mg/dL (8.5-10.1); CREATININE 0.7 mg/dL (0.6-1.0); GFR 81.1; POTASSIUM 4.3 mmol/L (3.5-5.1); TOTAL BILIRUBIN 0.3 mg/dL (0.2-1.0); TOTAL PROTEIN 6.5 g/dL (6.4-8.2)
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
[2019-05-10] MEDS: glipiZIDE 5 MG TABLET PO SCH ×2 (09:08→16:27)
[2019-05-10] MEDS: SPIRONOLACTONE 25 MG TABLET PO SCH (09:08)
[2019-05-10] MEDS: INSULIN LISPRO 300 UNITS/3 ML VIAL. SQ SCH ×3 (09:08→17:12)
[2019-05-10] MEDS: LOSARTAN 50 MG TABLET. PO SCH (09:08)
[2019-05-10] MEDS: CLOPIDOGREL BISULFATE 75 MG TABLET PO SCH (09:09)
[2019-05-10] MEDS: PANTOPRAZOLE 40 MG TABLET. PO SCH (09:09)
[2019-05-10] MEDS: ATORVASTATIN CALCIUM 20 MG TABLET PO SCH (09:09)
[2019-05-10] MEDS: CALCIUM CARBONATE 500 MG TABLET PO SCH (09:09)
[2019-05-10] MEDS: hydroCHLOROthiazide 12.5 MG CAPSULE PO SCH (09:09)
[2019-05-10] MEDS: ACETAMINOPHEN 500 MG TABLET PO SCH ×2 (09:09→20:03)
[2019-05-10] MEDS: SERTRALINE 50 MG TABLET. PO SCH (09:10)
--- NOTE | 2019-05-10 09:19 | PN ---
DATE: 05/09/2019 PSYCHIATRIC PROGRESS NOTE This late entry 05/09/2019 covers elements not covered in my initial note. SUBJECTIVE: I met with the patient evening of 05/09/2019. The patient slept 7 hours previous night. She has been somewhat delusional regarding her son, Sylvester, picking her up, stating he dumped me here. Per EFREN España, she was looking for the AA meetings. 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 REVIEW OF SYSTEMS: No CV, , pulmonary, eye, ENT system symptoms on review. Reliability poor. MENTAL STATUS EXAM: Oriented to herself. Insight, judgment, recent and remote memory, attention, concentration, fund of knowledge poor, consistent with her diagnosis mentioned in my initial note. PLAN: No change from initial note. MAN Erika CASTILLO MD DR: OTTONIEL/sherif JOB#: [id number] / [id number]
[2019-05-10 09:43] LABS: BASO % 1 % (0-3); EOS # 0.4 x10^3/uL (0.0-0.7); EOS % 6 % (0-3); HEMATOCRIT 41.7 % (36.0-47.0); HEMOGLOBIN 13.8 g/dL (12.0-15.5); LYMPH # 1.3 x10^3/uL (1.0-4.8); LYMPH % 17 % (24-48); MEAN CORPUSCULAR HEMOGLOBIN 29 pg (25-35); MEAN CORPUSCULAR HGB CONC 33 g/dL (31-37); MEAN CORPUSCULAR VOLUME 87 fL (79-100); MONO # 0.4 x10^3/uL (0.0-1.1); MONO % 5 % (0-9); NEUT # 5.3 x10^3uL (1.8-7.7); NEUT % 71 % (31-73); PLATELET COUNT 230 x10^3/uL (140-400); RED BLOOD COUNT 4.82 x10^6/uL (3.50-5.40); WHITE BLOOD COUNT 7.4 x10^3/uL (4.0-11.0)
--- NOTE | 2019-05-10 09:44 | PN ---
DATE: 05/08/2019 PSYCHIATRIC PROGRESS NOTE This late entry 05/08/2019 covers elements not covered in my initial note. SUBJECTIVE: I met with the patient evening of 05/08/2019. Per EFREN Moore, the patient slept 5-1/2 hours previous night. She has been delusional, wanting to call the police, believes she is at [facility] in [place] looking for her purse, believes she has been stolen. UA has reflux to culture. We will await results, defer to Dr. Sawyer. REVIEW OF SYSTEMS: No CV, , pulmonary, eye, ENT system symptoms on review. Reliability poor. MENTAL STATUS EXAM: Oriented to herself. Insight, judgment, recent and remote memory, attention, concentration, fund of knowledge poor, consistent with her diagnosis mentioned in my initial note. PLAN: No change from initial note. Treat the UTI once culture returns. Rest unchanged. May need to increase the Zyprexa in due course or change to Seroquel or Risperdal. Maintain Zoloft, Aricept for now and Zoloft has been gradually increased. MAN Erika CASTILLO MD DR: OTTONIEL/sherif JOB#: [id number] / [id number]
--- NOTE | 2019-05-10 09:51 | NUR ---
Pt is calm, cooperative, compliant and calm. No agitation, no aggression, no hallucinations or delusions at this time. She is compliant with her medication and assessment.
[2019-05-10 15:42] VITALS: BP 123/74
[2019-05-10] MEDS: WARFARIN 5 MG TABLET. PO SCH (16:27)
[2019-05-10] MEDS: ASPIRIN 81 MG TAB.CHEW PO SCH (20:02)
[2019-05-10] MEDS: DONEPEZIL HCL 10 MG TABLET PO SCH (20:03)
--- NOTE | 2019-05-10 20:56 | PDOC ---
Exam Note: Eren Note: Please also refer to the separate dictated note~for this date of service dictated separately.~Patient seen individually. Discussed the patient with Nursing staff reviewed the chart.~Reviewed interim history and current functioning. Reviewed vital signs,~Labs/ Radiology~and current medications noted below. Continue current treatment with the changes noted in the dictated addendum note Assessment: Vital Signs/I&O: Vital Signs Date Time Temp Pulse Resp B/P (MAP) Pulse Ox O2 Delivery O2 Flow Rate FiO2 05/10/19 15:42 98.7 65 18 123/74 (90) 92 05/10/19 04:48 Room Air I & O 05/09/19 05/09/19 05/10/19 15:00 23:00 07:00 Intake Total 960 ml 480 ml Balance 960 ml 480 ml Labs: Laboratory Tests Test 05/10/19 07:15 05/10/19 07:25 05/10/19 09:20 05/10/19 11:43 Glucose (Fingerstick) 146 mg/dL (70-99) H 147 mg/dL (70-99) H Prothrombin Time 29.6 SEC (9.4-11.4) H Prothrombin Time INR 2.9 (0.9-1.1) H Sodium Level 144 mmol/L (136-145) Potassium Level 4.3 mmol/L (3.5-5.1) Chloride Level 107 mmol/L (98-107) Carbon Dioxide Level 25 mmol/L (21-32) Anion Gap 12 (6-14) Blood Urea Nitrogen 14 mg/dL (7-20) Creatinine 0.7 mg/dL (0.6-1.0) Estimated GFR (Cockcroft-Gault) 81.1 BUN/Creatinine Ratio 20 (6-20) Glucose Level 126 mg/dL (70-99) H Calcium Level 8.6 mg/dL (8.5-10.1) Total Bilirubin 0.3 mg/dL (0.2-1.0) Aspartate Amino Transferase (AST) 17 U/L (15-37) Alanine Aminotransferase (ALT) 15 U/L (14-59) Alkaline Phosphatase 90 U/L (46-116) Total Protein 6.5 g/dL (6.4-8.2) Albumin 3.3 g/dL (3.4-5.0) L Albumin/Globulin Ratio 1.0 (1.0-1.7) White Blood Count 7.4 x10^3/uL (4.0-11.0) Red Blood Count 4.82 x10^6/uL (3.50-5.40) Hemoglobin 13.8 g/dL (12.0-15.5) Hematocrit 41.7 % (36.0-47.0) Mean Corpuscular Volume 87 fL (79-100) Mean Corpuscular Hemoglobin 29 pg (25-35) Mean Corpuscular Hemoglobin Concent 33 g/dL (31-37) Red Cell Distribution Width 16.0 % (11.5-14.5) H Platelet Count 230 x10^3/uL (140-400) Neutrophils (%) (Auto) 71 % (31-73) Lymphocytes (%) (Auto) 17 % (24-48) L Monocytes (%) (Auto) 5 % (0-9) Eosinophils (%) (Auto) 6 % (0-3) H Basophils (%) (Auto) 1 % (0-3) Neutrophils # (Auto) 5.3 x10^3uL (1.8-7.7) Lymphocytes # (Auto) 1.3 x10^3/uL (1.0-4.8) Monocytes # (Auto) 0.4 x10^3/uL (0.0-1.1) Eosinophils # (Auto) 0.4 x10^3/uL (0.0-0.7) Basophils # (Auto) 0.0 x10^3/uL (0.0-0.2) Test 05/10/19 16:45 05/10/19 19:26 Glucose (Fingerstick) 222 mg/dL (70-99) H 200 mg/dL (70-99) H Current Medications: Meds: Current Medications Medications (Trade) Dose Ordered Sig/Margarita Route PRN Reason Start Time Stop Time Status Last Admin Dose Admin Sertraline HCl (Zoloft) 50 mg DAILY PO 05/10/19 09:00 05/10/19 09:10 I have reviewed the current psychotropics carefully including drug interactions. Risk benefit ratio favors no change other than as noted in my dictated progress note. Diagnosis: Problems: (1) Anxiety disorder (2) Dementia, vascular, with delusions (3) Dementia, vascular, with depression (4) Dementia in Alzheimer's disease with delusions (5) Dementia in Alzheimer's disease with depression (6) Impulse control disorder YG CASTILLO MD May 10, 2019 20:56
--- NOTE | 2019-05-10 23:09 | NUR ---
Pt located in the dayroom visiting with peers. Pt calm and cooperative. Pt delusional, stating that her was coming to pick her up and asked where the exit was. Compliant with whole medications. Pt has been restless this evening, unable to fall asleep. PRN Zyprexa administered at 2230. Will continue to monitor.
[2019-05-11 04:52] VITALS: BP 152/80
[2019-05-11] MEDS: LEVOTHYROXINE 125 MCG TABLET PO SCH (05:41)
[2019-05-11] MEDS: SPIRONOLACTONE 25 MG TABLET PO SCH (08:12)
[2019-05-11] MEDS: glipiZIDE 5 MG TABLET PO SCH ×2 (08:12→15:38)
[2019-05-11] MEDS: SERTRALINE 50 MG TABLET. PO SCH (08:13)
[2019-05-11] MEDS: CALCIUM CARBONATE 500 MG TABLET PO SCH (08:13)
[2019-05-11] MEDS: ATORVASTATIN CALCIUM 20 MG TABLET PO SCH (08:13)
[2019-05-11] MEDS: CLOPIDOGREL BISULFATE 75 MG TABLET PO SCH (08:13)
[2019-05-11] MEDS: LOSARTAN 50 MG TABLET. PO SCH (08:13)
[2019-05-11] MEDS: PANTOPRAZOLE 40 MG TABLET. PO SCH (08:13)
[2019-05-11] MEDS: ACETAMINOPHEN 500 MG TABLET PO SCH ×2 (08:13→21:46)
[2019-05-11] MEDS: hydroCHLOROthiazide 12.5 MG CAPSULE PO SCH (08:13)
[2019-05-11] MEDS: INSULIN LISPRO 300 UNITS/3 ML VIAL. SQ SCH ×3 (08:15→17:00)
--- NOTE | 2019-05-11 09:48 | NUR ---
Pt is calm, cooperative, compliant and calm. No agitation, no aggression, no hallucinations or delusions at this time. She is compliant with her medication and assessment. Pt often walks the halls for exercise. Addendum: 05/11/19 at 1016 by CHI MARSH RN Pt is delusional looking for her car stating her keys are locked in it and is asking to use the phone to call her family.
[2019-05-11] MEDS: WARFARIN 5 MG TABLET. PO SCH (15:36)
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
[2019-05-11 16:34] VITALS: BP 113/70
--- NOTE | 2019-05-11 21:20 | PDOC ---
Exam Note: Eren Note: Please also refer to the separate dictated note~for this date of service dictated separately.~Patient seen individually. Discussed the patient with Nursing staff reviewed the chart.~Reviewed interim history and current functioning. Reviewed vital signs,~Labs/ Radiology~and current medications noted below. Continue current treatment with the changes noted in the dictated addendum note Assessment: Vital Signs/I&O: Vital Signs Date Time Temp Pulse Resp B/P (MAP) Pulse Ox O2 Delivery O2 Flow Rate FiO2 05/11/19 16:34 98.2 72 18 113/70 (84) 98 Room Air I & O 05/10/19 05/10/19 05/11/19 14:59 22:59 06:59 Intake Total 720 ml 360 ml Balance 720 ml 360 ml Labs: Laboratory Tests Test 05/11/19 07:39 05/11/19 08:02 05/11/19 11:41 05/11/19 16:28 Glucose (Fingerstick) 253 mg/dL (70-99) H 143 mg/dL (70-99) H 190 mg/dL (70-99) H Prothrombin Time 28.9 SEC (9.4-11.4) H Prothrombin Time INR 2.8 (0.9-1.1) H Test 05/11/19 19:09 Glucose (Fingerstick) 183 mg/dL (70-99) H Current Medications: I have reviewed the current psychotropics carefully including drug interactions. Risk benefit ratio favors no change other than as noted in my dictated progress note. Diagnosis: Problems: (1) Anxiety disorder (2) Dementia, vascular, with delusions (3) Dementia, vascular, with depression (4) Dementia in Alzheimer's disease with delusions (5) Dementia in Alzheimer's disease with depression (6) Impulse control disorder YG CASTILLO MD May 11, 2019 21:20
[2019-05-11] MEDS: DONEPEZIL HCL 10 MG TABLET PO SCH (21:46)
[2019-05-11] MEDS: ASPIRIN 81 MG TAB.CHEW PO SCH (21:46)
[2019-05-12 04:57] VITALS: BP 152/79
[2019-05-12] MEDS: LEVOTHYROXINE 125 MCG TABLET PO SCH (05:50)
--- NOTE | 2019-05-12 06:18 | NUR ---
Nursing Note The patient was calm and compliant with medication and assessment. The patient took her medication whole and was pleasant during interactions with this nurse.
[2019-05-12] MEDS: glipiZIDE 5 MG TABLET PO SCH ×2 (08:20→17:11)
[2019-05-12] MEDS: SPIRONOLACTONE 25 MG TABLET PO SCH (08:20)
[2019-05-12] MEDS: INSULIN LISPRO 300 UNITS/3 ML VIAL. SQ SCH ×3 (08:20→17:02)
[2019-05-12] MEDS: hydroCHLOROthiazide 12.5 MG CAPSULE PO SCH (08:21)
[2019-05-12] MEDS: CALCIUM CARBONATE 500 MG TABLET PO SCH (08:21)
[2019-05-12] MEDS: ATORVASTATIN CALCIUM 20 MG TABLET PO SCH (08:21)
[2019-05-12] MEDS: LOSARTAN 50 MG TABLET. PO SCH (08:21)
[2019-05-12] MEDS: PANTOPRAZOLE 40 MG TABLET. PO SCH (08:22)
[2019-05-12] MEDS: SERTRALINE 50 MG TABLET. PO SCH (08:22)
[2019-05-12] MEDS: ACETAMINOPHEN 500 MG TABLET PO SCH ×2 (08:22→20:04)
[2019-05-12] MEDS: CLOPIDOGREL BISULFATE 75 MG TABLET PO SCH (08:22)
--- NOTE | 2019-05-12 09:40 | NUR ---
Pt is calm, cooperative, confused, compliant. No agitation or aggression, no hallucinations or delusions noted. She is compliant with medication and her assessment.
[2019-05-12 15:46] VITALS: BP 131/73
[2019-05-12] MEDS: WARFARIN 5 MG TABLET. PO SCH (17:11)
[2019-05-12] MEDS: ASPIRIN 81 MG TAB.CHEW PO SCH (20:04)
[2019-05-12] MEDS: DONEPEZIL HCL 10 MG TABLET PO SCH (20:05)
--- NOTE | 2019-05-12 20:41 | PDOC ---
Exam Note: Eren Note: Please also refer to the separate dictated note~for this date of service dictated separately.~Patient seen individually. Discussed the patient with Nursing staff reviewed the chart.~Reviewed interim history and current functioning. Reviewed vital signs,~Labs/ Radiology~and current medications noted below. Continue current treatment with the changes noted in the dictated addendum note Assessment: Vital Signs/I&O: Vital Signs Date Time Temp Pulse Resp B/P (MAP) Pulse Ox O2 Delivery O2 Flow Rate FiO2 05/12/19 15:46 97.9 70 18 131/73 (92) 96 05/11/19 16:34 Room Air I & O 05/11/19 05/11/19 05/12/19 15:00 23:00 07:00 Intake Total 720 ml 480 ml Balance 720 ml 480 ml Labs: Laboratory Tests Test 05/12/19 07:51 05/12/19 11:34 05/12/19 16:35 05/12/19 19:20 Glucose (Fingerstick) 155 mg/dL (70-99) H 134 mg/dL (70-99) H 141 mg/dL (70-99) H 199 mg/dL (70-99) H Current Medications: I have reviewed the current psychotropics carefully including drug interactions. Risk benefit ratio favors no change other than as noted in my dictated progress note. Diagnosis: Problems: (1) Anxiety disorder (2) Dementia, vascular, with delusions (3) Dementia, vascular, with depression (4) Dementia in Alzheimer's disease with delusions (5) Dementia in Alzheimer's disease with depression (6) Impulse control disorder YG CASTILLO MD May 12, 2019 20:41
--- NOTE | 2019-05-12 22:57 | NUR ---
Pt was located in the dayroom this evening, visiting with peers. Pt was calm, cooperative and compliant with whole medications. Pt did mention needing to get home to her , but was easily redirected.
[2019-05-12 22:58] LABS: BACTERIA,URINE 0 /HPF (0-FEW); BILIRUBIN,URINE NEG (NEG); CLARITY,URINE CLEAR; COLOR,URINE STRAW; GLUCOSE,URINE NEG (NEG); NITRITE,URINE NEG (NEG); SQUAMOUS EPITHELIAL CELL,UR OCC /LPF; UROBILINOGEN,URINE 0.2 mg/dL (0.2 mg/dL)
--- NOTE | 2019-05-12 23:50 | PN ---
DATE: 05/11/2019 PSYCHIATRIC PROGRESS NOTE This late entry of 05/11 covers elements not covered in my initial note. SUBJECTIVE: I met with the patient on the evening of 05/11. The patient slept 4 hours the previous night; on further check, she has slept 5 hours the previous night. She is confused, anxious, restless, but not aggressive. REVIEW OF SYSTEMS: No CV, , pulmonary, eye, ENT system symptoms on review. Reliability poor. MENTAL STATUS EXAMINATION: Oriented to herself. Insight, judgment, recent and remote memory, attention, concentration and fund of knowledge poor; consistent with her diagnosis mentioned in my initial note. PLAN: No change from initial note. MAN Erika CASTILLO MD DR: OTTONIEL/sherif JOB#: [id number] / [id number]
--- NOTE | 2019-05-12 23:55 | PN ---
DATE: 05/10/2019 PSYCHIATRIC PROGRESS NOTE. This late entry of 05/10/2019 covers the elements not covered in my initial note. SUBJECTIVE: I met with the patient in the evening of 05/10/2019 and staffed at treatment team meeting earlier in the day. The patient has been paranoid, confused, flooded her room by stuffing her bedsheet in the sink because she said she was trying to wash it. She is compliant with medication, slept 5 hours. Appetite 75%. At the treatment team meeting, her son, Freddy, who is a power of managing attorney, attended the conference. We had a lengthy discussion about the patient's diagnosis, progress, medications, discharge plans. He is looking at a Memory Care Unit in [place] at discharge. She has been delusional regarding son, believing he is stealing her money and her dog and son is going to visit her for the first time on 05/10/2019 and we will see how the visit goes. REVIEW OF SYSTEMS: No CV, , pulmonary, eye, ENT system symptoms on review. Reliability poor. MENTAL STATUS EXAM: Oriented to herself. Insight, judgment, recent and remote memory, attention, concentration, fund of knowledge poor, consistent with her diagnosis mentioned in my initial note. IMPRESSION: Major neurocognitive disorder, Alzheimer, vascular with delusion; depression; behavioral disturbance; anxiety disorder, unspecified; impulse control disorder, unspecified. Rest unchanged. PLAN: Continue psychotropics from initial note. She remains on Zoloft, gradually being increased; Aricept; Zyprexa scheduled 2.5 mg daily plus p.r.n. MAN Erika CASTILLO MD DR: OTTONIEL/sherif JOB#: [id number] / [id number]
[2019-05-13 05:53] VITALS: BP 166/73
[2019-05-13] MEDS: LEVOTHYROXINE 125 MCG TABLET PO SCH (06:08)
[2019-05-13] MEDS: SPIRONOLACTONE 25 MG TABLET PO SCH (08:04)
[2019-05-13] MEDS: INSULIN LISPRO 300 UNITS/3 ML VIAL. SQ SCH ×3 (08:04→17:13)
[2019-05-13] MEDS: glipiZIDE 5 MG TABLET PO SCH ×2 (08:04→17:11)
[2019-05-13] MEDS: CLOPIDOGREL BISULFATE 75 MG TABLET PO SCH (08:05)
[2019-05-13] MEDS: LOSARTAN 50 MG TABLET. PO SCH (08:05)
[2019-05-13] MEDS: ACETAMINOPHEN 500 MG TABLET PO SCH ×2 (08:05→20:05)
[2019-05-13] MEDS: CALCIUM CARBONATE 500 MG TABLET PO SCH (08:05)
[2019-05-13] MEDS: ATORVASTATIN CALCIUM 20 MG TABLET PO SCH (08:05)
[2019-05-13] MEDS: PANTOPRAZOLE 40 MG TABLET. PO SCH (08:05)
[2019-05-13] MEDS: hydroCHLOROthiazide 12.5 MG CAPSULE PO SCH (08:05)
[2019-05-13] MEDS: SERTRALINE 50 MG TABLET. PO SCH (08:06)
--- NOTE | 2019-05-13 09:05 | NUR ---
Pt is calm, cooperative, confused, compliant. No agitation or aggression, no hallucinations noted, pt is delusional that her his here and she needs to find him. She is compliant with medication and her assessment.
[2019-05-13 15:50] VITALS: BP 125/75
[2019-05-13] MEDS: WARFARIN 5 MG TABLET. PO SCH (17:11)
[2019-05-13] MEDS: ASPIRIN 81 MG TAB.CHEW PO SCH (20:05)
[2019-05-13] MEDS: DONEPEZIL HCL 10 MG TABLET PO SCH (20:05)
--- NOTE | 2019-05-13 20:44 | PDOC ---
Exam Note: Eren Note: Please also refer to the separate dictated note~for this date of service dictated separately.~Patient seen individually. Discussed the patient with Nursing staff reviewed the chart.~Reviewed interim history and current functioning. Reviewed vital signs,~Labs/ Radiology~and current medications noted below. Continue current treatment with the changes noted in the dictated addendum note Assessment: Vital Signs/I&O: Vital Signs Date Time Temp Pulse Resp B/P (MAP) Pulse Ox O2 Delivery O2 Flow Rate FiO2 05/13/19 15:50 97.2 62 18 125/75 (92) 94 05/11/19 16:34 Room Air I & O 05/12/19 05/12/19 05/13/19 15:00 23:00 07:00 Intake Total 840 ml 720 ml Balance 840 ml 720 ml Labs: Laboratory Tests Test 05/13/19 06:17 05/13/19 07:27 05/13/19 11:54 05/13/19 17:10 Prothrombin Time 27.0 SEC (9.4-11.4) H Prothrombin Time INR 2.6 (0.9-1.1) H Glucose (Fingerstick) 126 mg/dL (70-99) H 184 mg/dL (70-99) H 155 mg/dL (70-99) H Test 05/13/19 19:16 Glucose (Fingerstick) 149 mg/dL (70-99) H Current Medications: I have reviewed the current psychotropics carefully including drug interactions. Risk benefit ratio favors no change other than as noted in my dictated progress note. Diagnosis: Problems: (1) Anxiety disorder (2) Dementia, vascular, with delusions (3) Dementia, vascular, with depression (4) Dementia in Alzheimer's disease with delusions (5) Dementia in Alzheimer's disease with depression (6) Impulse control disorder GY CASTILLO MD May 13, 2019 20:44
--- NOTE | 2019-05-13 21:51 | PN ---
DATE: 05/12/2019 This late entry 05/12/2019 covers the elements not covered in my initial note. SUBJECTIVE: I met with the patient in the evening. The patient slept 8 hours previous night. She remains confused, somewhat delusional, looking for her , at times exit seeking. REVIEW OF SYSTEMS: No CV, , pulmonary, eye, ENT system symptoms on review. Reliability poor. MENTAL STATUS EXAM: Oriented to herself. Insight, judgment, recent and remote memory, attention, concentration, fund of knowledge poor, consistent with her diagnosis mentioned in my initial note. PLAN: No change from initial note and we will add trazodone 50 mg at bedtime, may repeat x 1 for insomnia. Rest unchanged. MAN Erika CASTILLO MD DR: OTTONIEL/sherif JOB#: [id number] / [id number]
[2019-05-13] MEDS: traZODone 50 MG TABLET. PO PRN (22:18)
--- NOTE | 2019-05-13 22:38 | NUR ---
Pt was located in the dayroom this evening visiting with another female peer. Compliant with whole medications. Pt confused and delusional. 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 Pt states that she had a very busy day but didn't get everything done, but "that's what Mondays are for." Pt resistive to going to bed, stating that her is coming to pick her up and that she just left her fiance sitting at the dining room table. Pt eventually went to bed but was very restless. Pt stated she couldn't get herself to calm down. PRN Trazodone administered at 2220. Will continue to monitor.
[2019-05-14 05:42] VITALS: BP 145/68
[2019-05-14] MEDS: LEVOTHYROXINE 125 MCG TABLET PO SCH (05:45)
[2019-05-14] MEDS: INSULIN LISPRO 300 UNITS/3 ML VIAL. SQ SCH ×3 (08:00→17:11)
[2019-05-14] MEDS: LOSARTAN 50 MG TABLET. PO SCH (08:39)
[2019-05-14] MEDS: SERTRALINE 25 MG TABLET. PO SCH (08:39)
[2019-05-14] MEDS: CALCIUM CARBONATE 500 MG TABLET PO SCH (08:39)
[2019-05-14] MEDS: glipiZIDE 5 MG TABLET PO SCH ×2 (08:39→16:05)
[2019-05-14] MEDS: hydroCHLOROthiazide 12.5 MG CAPSULE PO SCH (08:39)
[2019-05-14] MEDS: PANTOPRAZOLE 40 MG TABLET. PO SCH (08:39)
[2019-05-14] MEDS: CLOPIDOGREL BISULFATE 75 MG TABLET PO SCH (08:40)
[2019-05-14] MEDS: ACETAMINOPHEN 500 MG TABLET PO SCH ×2 (08:40→19:59)
[2019-05-14] MEDS: ATORVASTATIN CALCIUM 20 MG TABLET PO SCH (08:40)
[2019-05-14] MEDS: SPIRONOLACTONE 25 MG TABLET PO SCH (08:40)
--- NOTE | 2019-05-14 09:52 | NUR ---
Nursing Note Patient in the day room, pleasant, confused and delusional states 'Give me the pills so I can go, my is waiting for me outside.", pt is compliant with medications taken whole. No aggression. No agitation. Denies SI. Will continue to monitor.
[2019-05-14 15:34] VITALS: BP 127/67
[2019-05-14] MEDS: WARFARIN 5 MG TABLET. PO SCH (16:05)
[2019-05-14] MEDS: DONEPEZIL HCL 10 MG TABLET PO SCH (19:59)
[2019-05-14] MEDS: ASPIRIN 81 MG TAB.CHEW PO SCH (19:59)
--- NOTE | 2019-05-14 21:03 | PDOC ---
Exam Note: Eren Note: Please also refer to the separate dictated note~for this date of service dictated separately.~Patient seen individually. Discussed the patient with Nursing staff reviewed the chart.~Reviewed interim history and current functioning. Reviewed vital signs,~Labs/ Radiology~and current medications noted below. Continue current treatment with the changes noted in the dictated addendum note Assessment: Vital Signs/I&O: Vital Signs Date Time Temp Pulse Resp B/P (MAP) Pulse Ox O2 Delivery O2 Flow Rate FiO2 05/14/19 15:34 97.2 67 16 127/67 (87) 96 05/11/19 16:34 Room Air I & O 05/13/19 05/13/19 05/14/19 15:00 23:00 07:00 Intake Total 680 ml 480 ml Balance 680 ml 480 ml Labs: Laboratory Tests Test 05/14/19 07:32 05/14/19 09:03 05/14/19 12:00 05/14/19 16:56 Glucose (Fingerstick) 130 mg/dL (70-99) H 93 mg/dL (70-99) 179 mg/dL (70-99) H Prothrombin Time 26.5 SEC (9.4-11.4) H Prothrombin Time INR 2.6 (0.9-1.1) H Test 05/14/19 19:19 Glucose (Fingerstick) 144 mg/dL (70-99) H Current Medications: Meds: Current Medications Medications (Trade) Dose Ordered Sig/Margarita Route PRN Reason Start Time Stop Time Status Last Admin Dose Admin Sertraline HCl (Zoloft) 75 mg DAILY PO 05/14/19 09:00 05/14/19 08:39 I have reviewed the current psychotropics carefully including drug interactions. Risk benefit ratio favors no change other than as noted in my dictated progress note. Diagnosis: Problems: (1) Anxiety disorder (2) Dementia, vascular, with delusions (3) Dementia, vascular, with depression (4) Dementia in Alzheimer's disease with delusions (5) Dementia in Alzheimer's disease with depression (6) Impulse control disorder YG CASTILLO MD May 14, 2019 21:03
--- NOTE | 2019-05-14 22:30 | PN ---
DATE: 05/13/2019 PSYCHIATRIC PROGRESS NOTE This late entry 05/13/2019 covers elements not covered in my initial note. SUBJECTIVE: I met with the patient evening of 05/13/2019. Per EFREN Reynolds, the patient remains confused, slept 6-1/2 hours previous night. She has been wandering, exit seeking, looking for her . Family visited. She remains somewhat obsessive. REVIEW OF SYSTEMS: No CV, , pulmonary, eye, ENT system symptoms on review. Reliability poor. MENTAL STATUS EXAM: Oriented to herself. Insight, judgment, recent and remote memory, attention, concentration, fund of knowledge poor, consistent with her diagnosis mentioned in my initial note. PLAN: Increase Zoloft from 50 mg a day to 75 mg a day for her mood, anxiety symptoms and obsessive thought patterns, maintain Aricept 10 mg a day, Zyprexa 2.5 mg daily, 5 mg at bedtime. Rest unchanged for now. YG CASTILLO MD DR: OTTONIEL/sherif JOB#: [id number] / [id number]
--- NOTE | 2019-05-14 22:40 | NUR ---
Nursing note Assumed care of pt in her room. She had just come from the shower/ I complimented her on her white hair and she told me a convoluted story about how they changed it from white. She is pleasant and interactive but disorganized. Denies pain, no negative behaviors
[2019-05-15 05:59] VITALS: BP 148/75
[2019-05-15] MEDS: LEVOTHYROXINE 125 MCG TABLET PO SCH (06:08)
[2019-05-15 07:10] LABS: BASO # 0.1 x10^3/uL (0.0-0.2); BASO % 1 % (0-3); EOS # 0.3 x10^3/uL (0.0-0.7); EOS % 4 % (0-3); HEMATOCRIT 38.2 % (36.0-47.0); HEMOGLOBIN 12.6 g/dL (12.0-15.5); LYMPH # 1.1 x10^3/uL (1.0-4.8); LYMPH % 15 % (24-48); MEAN CORPUSCULAR HEMOGLOBIN 29 pg (25-35); MEAN CORPUSCULAR HGB CONC 33 g/dL (31-37); MEAN CORPUSCULAR VOLUME 87 fL (79-100); MONO # 0.4 x10^3/uL (0.0-1.1); MONO % 6 % (0-9); NEUT # 5.3 x10^3uL (1.8-7.7); NEUT % 74 % (31-73); PLATELET COUNT 246 x10^3/uL (140-400); RED BLOOD COUNT 4.39 x10^6/uL (3.50-5.40); RED CELL DISTRIBUTION WIDTH 15.8 % (11.5-14.5); WHITE BLOOD COUNT 7.2 x10^3/uL (4.0-11.0)
[2019-05-15 07:24] LABS: ALBUMIN 3.2 g/dL (3.4-5.0); ALBUMIN/GLOBULIN RATIO 0.9 (1.0-1.7); CALCIUM 8.8 mg/dL (8.5-10.1); CREATININE 0.7 mg/dL (0.6-1.0); GFR 81.1; POTASSIUM 4.2 mmol/L (3.5-5.1); TOTAL BILIRUBIN 0.4 mg/dL (0.2-1.0); TOTAL PROTEIN 6.7 g/dL (6.4-8.2)
[2019-05-15] MEDS: INSULIN LISPRO 300 UNITS/3 ML VIAL. SQ SCH ×3 (08:00→17:22)
[2019-05-15] MEDS: glipiZIDE 5 MG TABLET PO SCH ×2 (08:17→16:46)
[2019-05-15] MEDS: SPIRONOLACTONE 25 MG TABLET PO SCH (08:18)
[2019-05-15] MEDS: LOSARTAN 50 MG TABLET. PO SCH (08:18)
[2019-05-15] MEDS: hydroCHLOROthiazide 12.5 MG CAPSULE PO SCH (08:19)
[2019-05-15] MEDS: CLOPIDOGREL BISULFATE 75 MG TABLET PO SCH (08:19)
[2019-05-15] MEDS: ATORVASTATIN CALCIUM 20 MG TABLET PO SCH (08:19)
[2019-05-15] MEDS: PANTOPRAZOLE 40 MG TABLET. PO SCH (08:19)
[2019-05-15] MEDS: ACETAMINOPHEN 500 MG TABLET PO SCH ×2 (08:19→20:04)
[2019-05-15] MEDS: CALCIUM CARBONATE 500 MG TABLET PO SCH (08:19)
[2019-05-15] MEDS: SERTRALINE 25 MG TABLET. PO SCH (08:20)
--- NOTE | 2019-05-15 09:59 | NUR ---
Patient was in the dining room during morning rounding, took medications whole. Patient has been calm, cooperative, allowed for morning assessment. Patient denies pain, no agitation noted at this time. Will continue to monitor.
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
[2019-05-15 15:43] VITALS: BP 133/59
[2019-05-15] MEDS: WARFARIN 5 MG TABLET. PO SCH (16:46)
[2019-05-15] MEDS: ACETAMINOPHEN 325 MG TABLET PO PRN (16:47)
--- NOTE | 2019-05-15 17:01 | NUR ---
Patient mentioned to staff that she was having some leg pain. Patient asked for some Tylenol. PRN Tylenol given @0771. Patient is headed to dinner, will continue to monitor.
[2019-05-15] MEDS: ASPIRIN 81 MG TAB.CHEW PO SCH (20:04)
[2019-05-15] MEDS: DONEPEZIL HCL 10 MG TABLET PO SCH (20:04)
--- NOTE | 2019-05-15 20:54 | PDOC ---
Exam Note: Eren Note: Please also refer to the separate dictated note~for this date of service dictated separately.~Patient seen individually. Discussed the patient with Nursing staff reviewed the chart.~Reviewed interim history and current functioning. Reviewed vital signs,~Labs/ Radiology~and current medications noted below. Continue current treatment with the changes noted in the dictated addendum note Assessment: Vital Signs/I&O: Vital Signs Date Time Temp Pulse Resp B/P (MAP) Pulse Ox O2 Delivery O2 Flow Rate FiO2 05/15/19 15:43 97.9 64 16 133/59 (83) 97 Room Air I & O 05/14/19 05/14/19 05/15/19 15:00 23:00 07:00 Intake Total 840 ml 240 ml Balance 840 ml 240 ml Labs: Laboratory Tests Test 05/15/19 06:54 05/15/19 07:51 05/15/19 11:59 05/15/19 17:12 White Blood Count 7.2 x10^3/uL (4.0-11.0) Red Blood Count 4.39 x10^6/uL (3.50-5.40) Hemoglobin 12.6 g/dL (12.0-15.5) Hematocrit 38.2 % (36.0-47.0) Mean Corpuscular Volume 87 fL (79-100) Mean Corpuscular Hemoglobin 29 pg (25-35) Mean Corpuscular Hemoglobin Concent 33 g/dL (31-37) Red Cell Distribution Width 15.8 % (11.5-14.5) H Platelet Count 246 x10^3/uL (140-400) Neutrophils (%) (Auto) 74 % (31-73) H Lymphocytes (%) (Auto) 15 % (24-48) L Monocytes (%) (Auto) 6 % (0-9) Eosinophils (%) (Auto) 4 % (0-3) H Basophils (%) (Auto) 1 % (0-3) Neutrophils # (Auto) 5.3 x10^3uL (1.8-7.7) Lymphocytes # (Auto) 1.1 x10^3/uL (1.0-4.8) Monocytes # (Auto) 0.4 x10^3/uL (0.0-1.1) Eosinophils # (Auto) 0.3 x10^3/uL (0.0-0.7) Basophils # (Auto) 0.1 x10^3/uL (0.0-0.2) Prothrombin Time 28.6 SEC (9.4-11.4) H Prothrombin Time INR 2.8 (0.9-1.1) H Sodium Level 138 mmol/L (136-145) Potassium Level 4.2 mmol/L (3.5-5.1) Chloride Level 102 mmol/L (98-107) Carbon Dioxide Level 29 mmol/L (21-32) Anion Gap 7 (6-14) Blood Urea Nitrogen 15 mg/dL (7-20) Creatinine 0.7 mg/dL (0.6-1.0) Estimated GFR (Cockcroft-Gault) 81.1 BUN/Creatinine Ratio 21 (6-20) H Glucose Level 134 mg/dL (70-99) H Calcium Level 8.8 mg/dL (8.5-10.1) Total Bilirubin 0.4 mg/dL (0.2-1.0) Aspartate Amino Transferase (AST) 15 U/L (15-37) Alanine Aminotransferase (ALT) 17 U/L (14-59) Alkaline Phosphatase 86 U/L (46-116) Total Protein 6.7 g/dL (6.4-8.2) Albumin 3.2 g/dL (3.4-5.0) L Albumin/Globulin Ratio 0.9 (1.0-1.7) L Glucose (Fingerstick) 141 mg/dL (70-99) H 70 mg/dL (70-99) 182 mg/dL (70-99) H Test 05/15/19 19:10 Glucose (Fingerstick) 133 mg/dL (70-99) H Current Medications: I have reviewed the current psychotropics carefully including drug interactions. Risk benefit ratio favors no change other than as noted in my dictated progress note. Diagnosis: Problems: (1) Anxiety disorder (2) Dementia, vascular, with delusions (3) Dementia, vascular, with depression (4) Dementia in Alzheimer's disease with delusions (5) Dementia in Alzheimer's disease with depression (6) Impulse control disorder YG CASTILLO MD May 15, 2019 20:54
--- NOTE | 2019-05-15 21:10 | NUR ---
Nursing note: Assumed care of pt in the day room where she was sitting quietly watching tv. She was compliant ans pleasant but confused. She asked me if it was time for breakfast. I advised her it was nearly bedtime. She said no wonder I'm hungry. I agreed to give her ice cream and she was appreciative. She went to bed after eating. No c/o pain.
--- NOTE | 2019-05-16 03:02 | PN ---
DATE: 05/14/2019 This late entry 05/14/2019 covers elements not covered in my initial note. SUBJECTIVE: I met with the patient evening of 05/14/2019. The patient slept 6-1/2 hours previous night. Per EFREN Quinones, the patient had a good day. She remains confused, had a nap for about 2 hours. REVIEW OF SYSTEMS: No CV, , pulmonary, eye, ENT system symptoms on review. Reliability poor. MENTAL STATUS EXAM: Oriented to herself. Insight, judgment, recent and remote memory, attention, concentration, fund of knowledge poor, consistent with her diagnosis mentioned in my initial note. FINAL DIAGNOSES: Major neurocognitive disorder; Alzheimer, vascular with delusion; depression, behavioral disturbance; anxiety disorder, unspecified; impulse control disorder, unspecified. Rest unchanged. PLAN: No change from initial note. MAN Erika CASTILLO MD DR: OTTONIEL/sherif JOB#: [id number] / [id number]
[2019-05-16] MEDS: LEVOTHYROXINE 125 MCG TABLET PO SCH (04:48)
[2019-05-16 05:46] VITALS: BP 121/50
[2019-05-16] MEDS: INSULIN LISPRO 300 UNITS/3 ML VIAL. SQ SCH ×3 (08:00→17:14)
--- NOTE | 2019-05-16 10:20 | NUR ---
WEEKLY ACTIVITY THERAPY NOTE Date of Admission: 05/03/2019 Date of AT Assessment: 05/06/2019 Goal aimed: to increase relaxation and socialization Initial Goal: Pt. will participate in at least five Activity Therapy individual or group sessions before discharge. Weekly progress towards goal: achieved 12/10 Group participation level: 6 groups this week- 3 mod, 3 full Weekly highlights: tossing horseshoes on Monday, smiling often and social with peer Behaviors observed: confused, concerned about family but more calm and easily redirected, [place], walks/ wanders in and out of group at times, sleeps during group occasionally Plan: change goal to: Pt. will participate in at least five Activity Therapy groups per week Beneficial adaptations: verbal cues loudly spoken near ear, reassurance about family concerns
--- NOTE | 2019-05-16 10:44 | NUR ---
Patient was up and ate breakfast but immediately returned to bed. Patient reports that she has a headache and would prefer to take her medications "not right now". Will monitor patient and give medications when she gets up.
--- NOTE | 2019-05-16 12:10 | NUR ---
Patient up for lunch. Will give morning medications at this time.
[2019-05-16] MEDS: ATORVASTATIN CALCIUM 20 MG TABLET PO SCH (12:26)
[2019-05-16] MEDS: LOSARTAN 50 MG TABLET. PO SCH (12:27)
[2019-05-16] MEDS: hydroCHLOROthiazide 12.5 MG CAPSULE PO SCH (12:27)
[2019-05-16] MEDS: ACETAMINOPHEN 500 MG TABLET PO SCH ×2 (12:28→20:38)
[2019-05-16] MEDS: glipiZIDE 5 MG TABLET PO SCH ×2 (12:28→17:17)
[2019-05-16] MEDS: PANTOPRAZOLE 40 MG TABLET. PO SCH (12:28)
[2019-05-16] MEDS: SERTRALINE 25 MG TABLET. PO SCH (12:28)
[2019-05-16] MEDS: CALCIUM CARBONATE 500 MG TABLET PO SCH (12:28)
[2019-05-16] MEDS: SPIRONOLACTONE 25 MG TABLET PO SCH (12:28)
[2019-05-16] MEDS: CLOPIDOGREL BISULFATE 75 MG TABLET PO SCH (12:29)
--- NOTE | 2019-05-16 12:38 | NUR ---
Patient stated she is having pain in her neck, on the left side under her ear. Patient has PRN zyrtec for allergies and scheduled tylenol for pain. Gave patient her PRN zyrtec and will continue to monitor.
--- NOTE | 2019-05-16 13:34 | NUR ---
Provided update to Freddy, son/POA. Chloe is averaging six hours of sleep at night and meal intakes are good at 100%. She has been medication compliant and is cooperative with nursing assessments. She is alert with confusion and memory deficits, at times wandering the unit looking for her spouse. Tentative d/c date end of next week. Freddy still prefers for Andrea to return to home and indicates he has 6-7 people that are going to be taking a rotational shift in order for Chloe to have 24 hour supervision and oversight. Discussed with Freddy about it being unsafe for Chloe to be left alone at this time due to her impaired memory and decision making ability. Freddy was agreeable for this worker to arrange for a CARE assessment to be completed should Chloe returning to home not work out and she need to be placed in a care facility. Faxed request for CARE assessment to be completed to Zonia at [facility].
[2019-05-16 15:22] VITALS: BP 111/64
--- NOTE | 2019-05-16 16:12 | NUR ---
1:1 with Chloe on 05/15 and this date. She was resting on bed both days in the afternoon. She initiates conversation and shares she is losing her memory. She was tearful this afternoon. SHRUTHI acknowledged the sadness and uncertainty of memory loss and Chloe spoke about never imagining that she would be dealing with this. Reassurance and support offered. Reminded Chloe that she has family that intend to assist her and ensure she is safe. Chloe thanked SHRUTHI for visiting.
[2019-05-16] MEDS: WARFARIN 5 MG TABLET. PO SCH (17:17)
[2019-05-16] MEDS: ASPIRIN 81 MG TAB.CHEW PO SCH (20:38)
[2019-05-16] MEDS: DONEPEZIL HCL 10 MG TABLET PO SCH (20:38)
[2019-05-16] MEDS: CYCLOBENZAPRINE 10 MG TABLET. PO PRN (20:38)
[2019-05-16] MEDS: ACETAMINOPHEN 325 MG TABLET PO PRN (20:38)
--- NOTE | 2019-05-16 21:01 | PDOC ---
Exam Note: Eren Note: Please also refer to the separate dictated note~for this date of service dictated separately.~Patient seen individually. Discussed the patient with Nursing staff reviewed the chart.~Reviewed interim history and current functioning. Reviewed vital signs,~Labs/ Radiology~and current medications noted below. Continue current treatment with the changes noted in the dictated addendum note Assessment: Vital Signs/I&O: Vital Signs Date Time Temp Pulse Resp B/P (MAP) Pulse Ox O2 Delivery O2 Flow Rate FiO2 05/16/19 15:22 97.9 108 20 111/64 (80) 93 Room Air I & O 05/15/19 05/15/19 05/16/19 15:00 23:00 07:00 Intake Total 720 ml 240 ml Balance 720 ml 240 ml Labs: Laboratory Tests Test 05/16/19 06:56 05/16/19 07:41 05/16/19 12:18 05/16/19 16:29 Prothrombin Time 24.0 SEC (9.4-11.4) H Prothrombin Time INR 2.3 (0.9-1.1) H Glucose (Fingerstick) 149 mg/dL (70-99) H 157 mg/dL (70-99) H 73 mg/dL (70-99) Test 05/16/19 19:06 Glucose (Fingerstick) 177 mg/dL (70-99) H Current Medications: I have reviewed the current psychotropics carefully including drug interactions. Risk benefit ratio favors no change other than as noted in my dictated progress note. Diagnosis: Problems: (1) Anxiety disorder (2) Dementia, vascular, with delusions (3) Dementia, vascular, with depression (4) Dementia in Alzheimer's disease with delusions (5) Dementia in Alzheimer's disease with depression (6) Impulse control disorder YG CASTILLO MD May 16, 2019 21:01
--- NOTE | 2019-05-16 21:29 | NUR ---
Patient located in patient room at time of shift change and assessment. Patient is complaint and calm with assessment and medications. Patient is able to swallow pills whole one at a time. Patient is resting in bed at this time, no delusions noted. Will continue to monitor.
[2019-05-17] MEDS: LEVOTHYROXINE 125 MCG TABLET PO SCH (05:37)
[2019-05-17 05:44] VITALS: BP 156/74
[2019-05-17] MEDS: INSULIN LISPRO 300 UNITS/3 ML VIAL. SQ SCH ×3 (07:56→17:00)
[2019-05-17] MEDS: ATORVASTATIN CALCIUM 20 MG TABLET PO SCH (08:27)
[2019-05-17] MEDS: CLOPIDOGREL BISULFATE 75 MG TABLET PO SCH (08:27)
[2019-05-17] MEDS: hydroCHLOROthiazide 12.5 MG CAPSULE PO SCH (08:28)
[2019-05-17] MEDS: SERTRALINE 25 MG TABLET. PO SCH (08:28)
[2019-05-17] MEDS: LOSARTAN 50 MG TABLET. PO SCH (08:28)
[2019-05-17] MEDS: SPIRONOLACTONE 25 MG TABLET PO SCH (08:28)
[2019-05-17] MEDS: PANTOPRAZOLE 40 MG TABLET. PO SCH (08:28)
[2019-05-17] MEDS: ACETAMINOPHEN 500 MG TABLET PO SCH ×2 (08:29→20:44)
[2019-05-17] MEDS: glipiZIDE 5 MG TABLET PO SCH ×2 (08:29→16:30)
[2019-05-17] MEDS: CALCIUM CARBONATE 500 MG TABLET PO SCH (08:29)
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
--- NOTE | 2019-05-17 14:54 | NUR ---
Follow up call to Freddy, POA/son, as he had indicated at time of admission that Chloe did not want CPR should her heart cease beating. Requested that the next time Freddy visits Chloe, to sign the DNR/NCB form at the nurses station and that a physician would sign off as well. Freddy indicated he would do so on his next visit to the unit.
[2019-05-17] MEDS: ACETAMINOPHEN 325 MG TABLET PO PRN (15:21)
[2019-05-17 15:42] VITALS: BP 119/59
[2019-05-17] MEDS: WARFARIN 5 MG TABLET. PO SCH (16:00)
--- NOTE | 2019-05-17 16:39 | NUR ---
Pt up adl. Has been compliant with meds and cares. C/o B leg pain in afternoon. Tylenol given.
--- NOTE | 2019-05-17 20:41 | PN ---
DATE: 05/15/2019 PSYCHIATRIC PROGRESS NOTE This late entry 05/15/2019 covers elements not covered in my initial note. SUBJECTIVE: I met with the patient evening of 05/15/2019. Per EFREN Townsend, the patient slept 5-1/2 hours previous night. She has been pleasant, compliant with medications. More redirectable, accepting of her memory loss. REVIEW OF SYSTEMS: No CV, , pulmonary, eye, ENT system symptoms on review. Reliability poor. MENTAL STATUS EXAM: Oriented to herself. Insight, judgment, recent and remote memory, attention, concentration, fund of knowledge poor, consistent with her diagnosis mentioned in my initial note. PLAN: No change from initial note. During the individual visit, she was very verbal, appropriate, reflecting on her memory loss, a little frustrated with it, but less agitated. MAN Erika CASTILLO MD DR: OTTONIEL/sherif JOB#: [id number] / [id number]
[2019-05-17] MEDS: ASPIRIN 81 MG TAB.CHEW PO SCH (20:44)
[2019-05-17] MEDS: DONEPEZIL HCL 10 MG TABLET PO SCH (20:44)
[2019-05-17] MEDS: traMADol 50 MG TABLET PO PRN (20:50)
[2019-05-17] MEDS: CYCLOBENZAPRINE 10 MG TABLET. PO PRN (20:50)
--- NOTE | 2019-05-17 21:02 | PDOC ---
Exam Note: Eren Note: Please also refer to the separate dictated note~for this date of service dictated separately.~Patient seen individually. Discussed the patient with Nursing staff reviewed the chart.~Reviewed interim history and current functioning. Reviewed vital signs,~Labs/ Radiology~and current medications noted below. Continue current treatment with the changes noted in the dictated addendum note Assessment: Vital Signs/I&O: Vital Signs Date Time Temp Pulse Resp B/P (MAP) Pulse Ox O2 Delivery O2 Flow Rate FiO2 05/17/19 20:50 Room Air 05/17/19 15:42 97.6 66 18 119/59 (79) 94 I & O 05/16/19 05/16/19 05/17/19 15:00 23:00 07:00 Intake Total 960 ml 240 ml Balance 960 ml 240 ml Labs: Laboratory Tests Test 05/17/19 07:04 05/17/19 07:39 05/17/19 11:42 05/17/19 17:10 Prothrombin Time 22.6 SEC (9.4-11.4) H Prothrombin Time INR 2.2 (0.9-1.1) H Glucose (Fingerstick) 143 mg/dL (70-99) H 95 mg/dL (70-99) 136 mg/dL (70-99) H Test 05/17/19 19:13 Glucose (Fingerstick) 246 mg/dL (70-99) H Current Medications: I have reviewed the current psychotropics carefully including drug interactions. Risk benefit ratio favors no change other than as noted in my dictated progress note. Diagnosis: Problems: (1) Anxiety disorder (2) Anxiety disorder (3) Dementia, vascular, with delusions (4) Dementia, vascular, with depression (5) Dementia in Alzheimer's disease with delusions (6) Dementia in Alzheimer's disease with depression (7) Impulse control disorder YG CASTILLO MD May 17, 2019 21:02
--- NOTE | 2019-05-17 23:10 | NUR ---
Pt has mainly been in room this shift. She took meds whole without difficulty. PRN pain meds given for pain in neck which she reported relived the pain. No behaviors tonight.
--- NOTE | 2019-05-18 01:30 | PN ---
DATE: 05/16/2019 PSYCHIATRIC PROGRESS NOTE This late entry 05/16/2019 covers elements not covered in my initial note. SUBJECTIVE: I met with the patient in the evening of 05/16/2019 and staffed at a treatment team meeting with the entire team earlier in the day. We tried to contact the patient's son, Freddy, for the treatment team meeting, but he was unavailable. Sleeping average 6 hours. Appetite 100%. Less psychotic and delusional, compliant with medications, pleasant. She has not been fixated on her son stealing her money or killing the dog, attending groups, able to accept she is losing her memory as I addressed this with her individually at length in the evening. REVIEW OF SYSTEMS: No CV, , pulmonary, eye system symptoms on review. Reliability poor. MENTAL STATUS EXAM: Oriented to herself. Insight, judgment, recent and remote memory, attention, concentration, fund of knowledge poor, consistent with her diagnosis mentioned in my initial note. PLAN: No change from initial note. Continue Zyprexa 2.5 mg a.m., 5 mg at bedtime, Aricept, Zoloft along with trazodone, the latter is p.r.n. MAN Erika CASTILLO MD DR: OTTONIEL/sherif JOB#: [id number] / [id number]
[2019-05-18 05:14] VITALS: BP 144/70
[2019-05-18] MEDS: LEVOTHYROXINE 125 MCG TABLET PO SCH (05:34)
[2019-05-18] MEDS: INSULIN LISPRO 300 UNITS/3 ML VIAL. SQ SCH ×3 (07:50→17:00)
[2019-05-18] MEDS: hydroCHLOROthiazide 12.5 MG CAPSULE PO SCH (07:51)
[2019-05-18] MEDS: LOSARTAN 50 MG TABLET. PO SCH (07:51)
[2019-05-18] MEDS: CALCIUM CARBONATE 500 MG TABLET PO SCH (07:51)
[2019-05-18] MEDS: PANTOPRAZOLE 40 MG TABLET. PO SCH (07:52)
[2019-05-18] MEDS: glipiZIDE 5 MG TABLET PO SCH ×2 (07:52→16:30)
[2019-05-18] MEDS: CLOPIDOGREL BISULFATE 75 MG TABLET PO SCH (07:52)
[2019-05-18] MEDS: SPIRONOLACTONE 25 MG TABLET PO SCH (07:52)
[2019-05-18] MEDS: ACETAMINOPHEN 500 MG TABLET PO SCH ×2 (07:52→19:41)
[2019-05-18] MEDS: ATORVASTATIN CALCIUM 20 MG TABLET PO SCH (07:53)
[2019-05-18] MEDS: SERTRALINE 100 MG TABLET. PO SCH (07:53)
[2019-05-18] MEDS: WARFARIN 5 MG TABLET. PO SCH (16:00)
[2019-05-18 16:01] VITALS: BP 148/78
--- NOTE | 2019-05-18 16:46 | NUR ---
Pt up for meals. Has wandered in halls at times. Has asked to talk with son x2. Pt asking about how to get home. Pt did talk with son in afternoon. Visit went well. Has been compliant with meds and cares.
[2019-05-18] MEDS: ASPIRIN 81 MG TAB.CHEW PO SCH (19:41)
[2019-05-18] MEDS: DONEPEZIL HCL 10 MG TABLET PO SCH (19:41)
--- NOTE | 2019-05-18 21:39 | PDOC ---
Exam Note: Eren Note: Please also refer to the separate dictated note~for this date of service dictated separately.~Patient seen individually. Discussed the patient with Nursing staff reviewed the chart.~Reviewed interim history and current functioning. Reviewed vital signs,~Labs/ Radiology~and current medications noted below. Continue current treatment with the changes noted in the dictated addendum note Assessment: Vital Signs/I&O: Vital Signs Date Time Temp Pulse Resp B/P (MAP) Pulse Ox O2 Delivery O2 Flow Rate FiO2 05/18/19 16:01 97.2 71 18 148/78 (101) 95 05/17/19 20:50 Room Air I & O 05/17/19 05/17/19 05/18/19 15:00 23:00 07:00 Intake Total 960 ml 720 ml Balance 960 ml 720 ml Labs: Laboratory Tests Test 05/18/19 07:32 05/18/19 11:53 05/18/19 17:09 05/18/19 19:12 Glucose (Fingerstick) 139 mg/dL (70-99) H 64 mg/dL (70-99) L 114 mg/dL (70-99) H 137 mg/dL (70-99) H Current Medications: Meds: Current Medications Medications (Trade) Dose Ordered Sig/Margarita Route PRN Reason Start Time Stop Time Status Last Admin Dose Admin Sertraline HCl (Zoloft) 100 mg DAILY PO 05/18/19 09:00 05/18/19 07:53 I have reviewed the current psychotropics carefully including drug interactions. Risk benefit ratio favors no change other than as noted in my dictated progress note. Diagnosis: Problems: (1) Anxiety disorder (2) Anxiety disorder (3) Dementia, vascular, with delusions (4) Dementia, vascular, with depression (5) Dementia in Alzheimer's disease with delusions (6) Dementia in Alzheimer's disease with depression (7) Impulse control disorder YG CASTILLO MD May 18, 2019 21:39
--- NOTE | 2019-05-18 22:00 | NUR ---
This evening pt has been very confused. She is trying to find her car to go home. She did take meds whole without difficulty and has been pleasant, cooperative and social with peers. After going to bed she remained awake and reported pain in her neck. PRN trazodone and flexeril given. Since prns she has remained in bed and appears to be sleeping.
[2019-05-18] MEDS: traZODone 50 MG TABLET. PO PRN (22:03)
[2019-05-18] MEDS: CYCLOBENZAPRINE 10 MG TABLET. PO PRN (22:03)
[2019-05-19] MEDS: LEVOTHYROXINE 125 MCG TABLET PO SCH (05:58)
[2019-05-19 06:42] VITALS: BP 154/68
[2019-05-19] MEDS: INSULIN LISPRO 300 UNITS/3 ML VIAL. SQ SCH ×3 (07:52→16:59)
[2019-05-19] MEDS: ATORVASTATIN CALCIUM 20 MG TABLET PO SCH (08:02)
[2019-05-19] MEDS: CALCIUM CARBONATE 500 MG TABLET PO SCH (08:02)
[2019-05-19] MEDS: SERTRALINE 100 MG TABLET. PO SCH (08:02)
[2019-05-19] MEDS: glipiZIDE 5 MG TABLET PO SCH ×2 (08:03→16:30)
[2019-05-19] MEDS: SPIRONOLACTONE 25 MG TABLET PO SCH (08:03)
[2019-05-19] MEDS: PANTOPRAZOLE 40 MG TABLET. PO SCH (08:03)
[2019-05-19] MEDS: CLOPIDOGREL BISULFATE 75 MG TABLET PO SCH (08:03)
[2019-05-19] MEDS: LOSARTAN 50 MG TABLET. PO SCH (08:03)
[2019-05-19] MEDS: hydroCHLOROthiazide 12.5 MG CAPSULE PO SCH (08:03)
[2019-05-19] MEDS: ACETAMINOPHEN 500 MG TABLET PO SCH ×2 (08:04→20:20)
--- NOTE | 2019-05-19 14:05 | NUR ---
Pt up adl to meals. Still delusional at times. Asking to leave in car but has been easily redirectable. Takes meds without difficulty.
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
--- NOTE | 2019-05-19 15:16 | NUR ---
Pharmacy Warfarin Dosing Note S:Pharmacy consulted to assist with anticoagulation therapy started 05/19/19 with target INR: 2-2.5 O:WENDY SCHWARTZ is a 78 year old F with Atrial Fibrillation DVT/PE LABS: Last INR: 2.1 Last HGB: 38.2 Last HCT: 12.6 Last PLT: 246 Last dose of 5 mg given on 05/18/19 at 1600 Previous Regimen: Vitamin K given: Drug Interaction Changes: Ongoing Drug Interactions: Zoloft A:INR Within desired Range. Target Range for this patient is: 2-2.5 P: Warfarin dose: 6 mg Today at 1600 INR has been trending down for the last 3 days Bridge Therapy: None Next INR due 05/20/19 Pharmacy anticoagulation service will continue to follow. [facility], 05/19/19 [id number]
[2019-05-19 15:45] VITALS: BP 135/78
[2019-05-19] MEDS ORDERED: WARFARIN 6 MG TABLET. PO ONE (16:00)
[2019-05-19] MEDS: DONEPEZIL HCL 10 MG TABLET PO SCH (20:20)
[2019-05-19] MEDS: ASPIRIN 81 MG TAB.CHEW PO SCH (20:20)
--- NOTE | 2019-05-19 20:49 | PDOC ---
Exam Note: Eren Note: Please also refer to the separate dictated note~for this date of service dictated separately.~Patient seen individually. Discussed the patient with Nursing staff reviewed the chart.~Reviewed interim history and current functioning. Reviewed vital signs,~Labs/ Radiology~and current medications noted below. Continue current treatment with the changes noted in the dictated addendum note Assessment: Vital Signs/I&O: Vital Signs Date Time Temp Pulse Resp B/P (MAP) Pulse Ox O2 Delivery O2 Flow Rate FiO2 05/19/19 15:45 97.6 67 20 135/78 (97) 97 05/17/19 20:50 Room Air I & O 05/18/19 05/18/19 05/19/19 15:00 23:00 07:00 Intake Total 960 ml 480 ml 240 ml Balance 960 ml 480 ml 240 ml Labs: Laboratory Tests Test 05/19/19 07:45 05/19/19 09:55 05/19/19 11:43 05/19/19 16:58 Glucose (Fingerstick) 136 mg/dL (70-99) H 109 mg/dL (70-99) H 107 mg/dL (70-99) H Prothrombin Time 22.3 SEC (9.4-11.4) H Prothrombin Time INR 2.1 (0.9-1.1) H Test 05/19/19 19:01 Glucose (Fingerstick) 222 mg/dL (70-99) H Current Medications: Meds: Current Medications Medications (Trade) Dose Ordered Sig/Margarita Route PRN Reason Start Time Stop Time Status Last Admin Dose Admin Warfarin Sodium (Coumadin Per Pharmacy) 1 each PRN DAILY PRN MC SEE COMMENTS 05/19/19 15:15 05/19/19 15:16 Warfarin Sodium (Coumadin) 6 mg 1X WARF ONCE PO 05/19/19 16:00 05/19/19 16:01 DC 05/19/19 16:00 I have reviewed the current psychotropics carefully including drug interactions. Risk benefit ratio favors no change other than as noted in my dictated progress note. Diagnosis: Problems: (1) Anxiety disorder (2) Anxiety disorder (3) Dementia, vascular, with delusions (4) Dementia, vascular, with depression (5) Dementia in Alzheimer's disease with delusions (6) Dementia in Alzheimer's disease with depression (7) Impulse control disorder YG CASTILLO MD May 19, 2019 20:49
--- NOTE | 2019-05-19 21:27 | PN ---
DATE: 05/18/2019 PSYCHIATRIC PROGRESS NOTE. This late entry of 05/18/2019 covers the elements not covered in my initial note. SUBJECTIVE: I met with the patient in the evening of 05/18/2019. The patient 5-3/4 hours previous night, per EFREN Figueredo. Previous evening, she appeared to have some lucid moments, but the evening of 05/18/2019, she was looking for a ride to go home. I addressed this with her at length and she is pleasant, verbal, interactive, reflective on her memory loss. REVIEW OF SYSTEMS: No CV, , pulmonary, eye, ENT system symptoms on review. MENTAL STATUS EXAM: Oriented to herself. Insight, judgment, recent and remote memory, attention, concentration, fund of knowledge poor, consistent with her diagnosis mentioned in my initial note. PLAN: No change from initial note. MAN Erika CASTILLO MD DR: OTTONIEL/sherif JOB#: [id number] / [id number]
--- NOTE | 2019-05-19 22:25 | NUR ---
Nursing note: Assumed care of pt in her room. She was confused but compliant with meds and assessment. No c/o pain. Later pt came to nurses station and advised if anyone was looking for her she would be in the bathroom. She came out of her room with a brief over her pants.
[2019-05-20] MEDS: LEVOTHYROXINE 125 MCG TABLET PO SCH (05:22)
[2019-05-20 05:53] VITALS: BP 137/65
[2019-05-20] MEDS: INSULIN LISPRO 300 UNITS/3 ML VIAL. SQ SCH ×3 (08:00→17:00)
[2019-05-20] MEDS: CALCIUM CARBONATE 500 MG TABLET PO SCH (09:07)
[2019-05-20] MEDS: CLOPIDOGREL BISULFATE 75 MG TABLET PO SCH (09:07)
[2019-05-20] MEDS: ACETAMINOPHEN 500 MG TABLET PO SCH ×2 (09:07→20:04)
[2019-05-20] MEDS: hydroCHLOROthiazide 12.5 MG CAPSULE PO SCH (09:07)
[2019-05-20] MEDS: glipiZIDE 5 MG TABLET PO SCH ×2 (09:07→16:35)
[2019-05-20] MEDS: PANTOPRAZOLE 40 MG TABLET. PO SCH (09:08)
[2019-05-20] MEDS: SPIRONOLACTONE 25 MG TABLET PO SCH (09:08)
[2019-05-20] MEDS: LOSARTAN 50 MG TABLET. PO SCH (09:08)
[2019-05-20] MEDS: SERTRALINE 100 MG TABLET. PO SCH (09:08)
[2019-05-20 15:48] VITALS: BP 116/58
[2019-05-20] MEDS ORDERED: WARFARIN 6 MG TABLET. PO ONE (16:00)
--- NOTE | 2019-05-20 19:48 | NUR ---
Pt calm and compliant with meds and assessment. No aggression or agitation. Oriented to self only.
[2019-05-20] MEDS: ATORVASTATIN CALCIUM 20 MG TABLET PO SCH (20:03)
[2019-05-20] MEDS: DONEPEZIL HCL 10 MG TABLET PO SCH (20:03)
[2019-05-20] MEDS: ASPIRIN 81 MG TAB.CHEW PO SCH (20:04)
--- NOTE | 2019-05-20 21:09 | PDOC ---
Exam Note: Eren Note: Please also refer to the separate dictated note~for this date of service dictated separately.~Patient seen individually. Discussed the patient with Nursing staff reviewed the chart.~Reviewed interim history and current functioning. Reviewed vital signs,~Labs/ Radiology~and current medications noted below. Continue current treatment with the changes noted in the dictated addendum note Assessment: Vital Signs/I&O: Vital Signs Date Time Temp Pulse Resp B/P (MAP) Pulse Ox O2 Delivery O2 Flow Rate FiO2 05/20/19 15:48 97.2 95 20 116/58 (77) 96 Room Air I & O 05/19/19 05/19/19 05/20/19 15:00 23:00 07:00 Intake Total 600 ml 360 ml Balance 600 ml 360 ml Labs: Laboratory Tests Test 05/20/19 06:20 05/20/19 07:49 05/20/19 11:33 05/20/19 17:17 Prothrombin Time 22.1 SEC (9.4-11.4) H Prothrombin Time INR 2.1 (0.9-1.1) H Glucose (Fingerstick) 123 mg/dL (70-99) H 83 mg/dL (70-99) 113 mg/dL (70-99) H Test 05/20/19 19:48 Glucose (Fingerstick) 179 mg/dL (70-99) H Current Medications: Meds: Current Medications Medications (Trade) Dose Ordered Sig/Margarita Route PRN Reason Start Time Stop Time Status Last Admin Dose Admin Atorvastatin Calcium (Lipitor) 40 mg HS PO 05/20/19 21:00 05/20/19 20:03 Warfarin Sodium (Coumadin) 6 mg 1X WARF ONCE PO 05/20/19 16:00 05/20/19 16:01 DC 05/20/19 16:35 I have reviewed the current psychotropics carefully including drug interactions. Risk benefit ratio favors no change other than as noted in my dictated progress note. 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
--- NOTE | 2019-05-20 22:12 | NUR ---
Nursing note: Assumed care of pt in the hallway where she was walking around, occasionally interacting with a peer. She was calm and cooperative with meds/assessment. She was told she was going to get a shower before bed. Pt stated she just had a shower on . She willing followed the FLAVORING MACHINE OPERATOR into the shower. She denies pain at this time even when specifically asked about previous areas of complaint. She has no negative behaviors at this time and went to bed right after shower.
--- NOTE | 2019-05-20 22:38 | PN ---
DATE: 05/19/2019 PSYCHIATRIC PROGRESS NOTE. This late entry of 05/19/2019 covers the elements not covered in my initial note. SUBJECTIVE: I met with the patient in the evening of 05/19/2019. Per EFREN Moore, the patient slept 6-3/4 hours previous night. She remains confused, but otherwise pleasant, verbal as I met with her, oblivious of her surroundings. She slept 6-3/4 hours previous night, per EFREN Moore. REVIEW OF SYSTEMS: No CV, , pulmonary, eye, ENT system symptoms on review. Reliability poor. MENTAL STATUS EXAM: Oriented to herself. Insight, judgment, recent and remote memory, attention, concentration, fund of knowledge poor, consistent with her diagnosis mentioned in my initial note. PLAN: No change from initial note. MAN Erika CASTILLO MD DR: OTTONIEL/sherif JOB#: [id number] / [id number]
[2019-05-21] MEDS: LEVOTHYROXINE 125 MCG TABLET PO SCH (05:32)
[2019-05-21 05:41] VITALS: BP 140/72
[2019-05-21] MEDS: INSULIN LISPRO 300 UNITS/3 ML VIAL. SQ SCH ×3 (07:47→17:58)
[2019-05-21] MEDS: CLOPIDOGREL BISULFATE 75 MG TABLET PO SCH (08:47)
[2019-05-21] MEDS: hydroCHLOROthiazide 12.5 MG CAPSULE PO SCH (08:47)
[2019-05-21] MEDS: LOSARTAN 50 MG TABLET. PO SCH (08:47)
[2019-05-21] MEDS: PANTOPRAZOLE 40 MG TABLET. PO SCH (08:47)
[2019-05-21] MEDS: CALCIUM CARBONATE 500 MG TABLET PO SCH (08:47)
[2019-05-21] MEDS: glipiZIDE 5 MG TABLET PO SCH ×2 (08:48→16:28)
[2019-05-21] MEDS: SPIRONOLACTONE 25 MG TABLET PO SCH (08:48)
[2019-05-21] MEDS: SERTRALINE 100 MG TABLET. PO SCH (08:48)
[2019-05-21] MEDS: ACETAMINOPHEN 500 MG TABLET PO SCH ×2 (08:48→20:00)
--- NOTE | 2019-05-21 10:36 | NUR ---
Pharmacy Warfarin Dosing Note S:Pharmacy consulted to assist with anticoagulation therapy started 05/19/19 with target INR: 2-2.5 O:WNEDY SCHWARTZ is a 78 year old F with Atrial Fibrillation DVT/PE LABS: Last INR: 1.8 Last HGB: 38.2 Last HCT: 12.6 Last PLT: 246 Last dose of 6 mg given on 05/20/19 at 1635 Previous Regimen: Vitamin K given: Drug Interaction Changes: New Interacting Drug Ongoing Drug Interactions: SERTRALINE A:INR Below desired Range. Target Range for this patient is: 2-2.5 P: Warfarin dose: 6 mg Today at 1600 Bridge Therapy: None . Next INR due 05/22/19 Pharmacy anticoagulation service will continue to follow. CECI LEONG, 05/21/19 1036
--- NOTE | 2019-05-21 10:54 | NUR ---
Patient has been walking in hallways and asking each staff member she sees if she can use the phone to call her to come get her. Patient has been told multiple times by this nurse that she is in the hospital and the doctor has not released her to leave yet. After that patient was experiencing delusions and stated that her car is in the parking lot and she has lost her keys, although she was not looking for her keys. Patient is compliant with medications, cooperative with cares and pleasant. She is oriented to herself and at this time.
[2019-05-21 15:44] VITALS: BP 128/74
[2019-05-21] MEDS ORDERED: WARFARIN 6 MG TABLET. PO ONE (16:00)
[2019-05-21] MEDS: DONEPEZIL HCL 10 MG TABLET PO SCH (20:01)
[2019-05-21] MEDS: ATORVASTATIN CALCIUM 20 MG TABLET PO SCH (20:01)
[2019-05-21] MEDS: ASPIRIN 81 MG TAB.CHEW PO SCH (20:01)
--- NOTE | 2019-05-21 21:08 | NUR ---
Nursing note: Assumed care of pt in the day room. She was visiting with peers, pleasant, and compliant. Pt still has delusions of leaving with spouse and will occasionally walk down the [place] and look for him. No c/o pain, no agitation.
--- NOTE | 2019-05-21 21:11 | PDOC ---
Exam Note: Eren Note: Please also refer to the separate dictated note~for this date of service dictated separately.~Patient seen individually. Discussed the patient with Nursing staff reviewed the chart.~Reviewed interim history and current functioning. Reviewed vital signs,~Labs/ Radiology~and current medications noted below. Continue current treatment with the changes noted in the dictated addendum note Assessment: Vital Signs/I&O: Vital Signs Date Time Temp Pulse Resp B/P (MAP) Pulse Ox O2 Delivery O2 Flow Rate FiO2 05/21/19 15:44 97.9 70 16 128/74 (92) 92 05/20/19 15:48 Room Air I & O 05/20/19 05/20/19 05/21/19 15:00 23:00 07:00 Intake Total 840 ml 360 ml Balance 840 ml 360 ml Labs: Laboratory Tests Test 05/21/19 06:55 05/21/19 07:42 05/21/19 11:38 05/21/19 17:08 Prothrombin Time 18.9 SEC (9.4-11.4) H Prothrombin Time INR 1.8 (0.9-1.1) H Glucose (Fingerstick) 132 mg/dL (70-99) H 120 mg/dL (70-99) H 169 mg/dL (70-99) H Test 05/21/19 19:07 Glucose (Fingerstick) 176 mg/dL (70-99) H Current Medications: Meds: Current Medications Medications (Trade) Dose Ordered Sig/Margarita Route PRN Reason Start Time Stop Time Status Last Admin Dose Admin Warfarin Sodium (Coumadin) 6 mg 1X WARF ONCE PO 05/21/19 16:00 05/21/19 16:01 DC 05/21/19 16:28 I have reviewed the current psychotropics carefully including drug interactions. Risk benefit ratio favors no change other than as noted in my dictated progress note. 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
--- NOTE | 2019-05-21 21:45 | PN ---
DATE: 05/20/2019 This late entry, 05/20, covers elements not covered in my initial note. SUBJECTIVE: I met with the patient evening of 05/20. Per EFREN Tyler, the patient slept 7 hours previous night. She remains confused, otherwise pleasant, verbal, interactive as I met with her, able to reflect on her memory loss. She is wanting to call her parents. REVIEW OF SYSTEMS: No CV, , pulmonary, eye, ENT system symptoms on review. Reliability poor. MENTAL STATUS EXAM: Oriented to herself. Insight, judgment, recent and remote memory, attention, concentration, fund of knowledge poor, consistent with her diagnosis mentioned in my initial note. PLAN: No change from initial note. MAN Erika CASTILLO MD DR: OTTONIEL/sherif JOB#: [id number] / [id number]
[2019-05-21] MEDS: traZODone 50 MG TABLET. PO PRN (23:55)
[2019-05-22 05:44] VITALS: BP 160/78
[2019-05-22] MEDS: LEVOTHYROXINE 125 MCG TABLET PO SCH (05:55)
[2019-05-22] MEDS: INSULIN LISPRO 300 UNITS/3 ML VIAL. SQ SCH ×3 (08:00→17:57)
[2019-05-22] MEDS: SPIRONOLACTONE 25 MG TABLET PO SCH (09:03)
[2019-05-22] MEDS: ACETAMINOPHEN 500 MG TABLET PO SCH ×2 (09:03→21:12)
[2019-05-22] MEDS: glipiZIDE 5 MG TABLET PO SCH ×2 (09:03→15:58)
[2019-05-22] MEDS: LOSARTAN 50 MG TABLET. PO SCH (09:03)
[2019-05-22] MEDS: SERTRALINE 100 MG TABLET. PO SCH (09:03)
[2019-05-22] MEDS: CLOPIDOGREL BISULFATE 75 MG TABLET PO SCH (09:04)
[2019-05-22] MEDS: hydroCHLOROthiazide 12.5 MG CAPSULE PO SCH (09:04)
[2019-05-22] MEDS: CALCIUM CARBONATE 500 MG TABLET PO SCH (09:04)
[2019-05-22] MEDS: PANTOPRAZOLE 40 MG TABLET. PO SCH (09:04)
--- NOTE | 2019-05-22 11:23 | NUR ---
Pharmacy Warfarin Dosing Note S:Pharmacy consulted to assist with anticoagulation therapy started 05/19/19 with target INR: 2-2.5 O:WENDY SCHWARTZ is a 78 year old F with Atrial Fibrillation DVT/PE [place] LABS: Last INR: 1.9 Last HGB: 12.6 Last HCT: 38.2 Last PLT: 246 Last dose of 6 mg given on 05/21/19 at 1600 Previous Regimen: Vitamin K given: Drug Interaction Changes: Same Interacting Drug Ongoing Drug Interactions: SERTRALINE A:INR Below desired Range. Target Range for this patient is: 2-2.5 P: Warfarin dose: 6 mg Today at 1600 Bridge Therapy: None . Next INR due 05/23/19 @ 0600 Pharmacy anticoagulation service will continue to follow. BK BATEMAN RP, 05/22/19 1124
--- NOTE | 2019-05-22 12:32 | NUR ---
Non-admin 0730 and 1200 doses of Insulin due to lab values under parameters. AM BS- 140, 1130-181. Will continue to monitor and assess.
--- NOTE | 2019-05-22 13:24 | NUR ---
Pt oriented to self with confusion. Pt has been pleasant and has participated in group therapy today. Pt also had nails painted today. Pt ambulates as tolerated. Pt also compliant with meds. Pt asked today "Are these medicines mine?" "They must have changed my medicines." RN assured pt that these were her medicines and no one else's and that her medicines have not been changed. Pt has spent most of the day in day room talking with other pts. Will continue to monitor and assess throughout shift.
[2019-05-22 15:49] VITALS: BP 119/70
[2019-05-22] MEDS ORDERED: WARFARIN 6 MG TABLET. PO ONE (16:00)
[2019-05-22] MEDS: traZODone 50 MG TABLET. PO PRN (21:11)
[2019-05-22] MEDS: ASPIRIN 81 MG TAB.CHEW PO SCH (21:11)
[2019-05-22] MEDS: ATORVASTATIN CALCIUM 20 MG TABLET PO SCH (21:12)
[2019-05-22] MEDS: DONEPEZIL HCL 10 MG TABLET PO SCH (21:12)
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
--- NOTE | 2019-05-22 21:55 | PDOC ---
Exam Note: Eren Note: Please also refer to the separate dictated note~for this date of service dictated separately.~Patient seen individually. Discussed the patient with Nursing staff reviewed the chart.~Reviewed interim history and current functioning. Reviewed vital signs,~Labs/ Radiology~and current medications noted below. Continue current treatment with the changes noted in the dictated addendum note Assessment: Vital Signs/I&O: Vital Signs Date Time Temp Pulse Resp B/P (MAP) Pulse Ox O2 Delivery O2 Flow Rate FiO2 05/22/19 15:49 97.8 67 18 119/70 (86) 94 Room Air I & O 05/21/19 05/21/19 05/22/19 15:00 23:00 07:00 Intake Total 960 ml 600 ml Balance 960 ml 600 ml Labs: Laboratory Tests Test 05/22/19 06:27 05/22/19 07:52 05/22/19 11:44 05/22/19 16:44 Prothrombin Time 20.1 SEC (9.4-11.4) H Prothrombin Time INR 1.9 (0.9-1.1) H Glucose (Fingerstick) 140 mg/dL (70-99) H 96 mg/dL (70-99) 195 mg/dL (70-99) H Test 05/22/19 19:08 Glucose (Fingerstick) 143 mg/dL (70-99) H Current Medications: Meds: Current Medications Medications (Trade) Dose Ordered Sig/Margarita Route PRN Reason Start Time Stop Time Status Last Admin Dose Admin Warfarin Sodium (Coumadin) 6 mg 1X WARF ONCE PO 05/22/19 16:00 05/22/19 16:01 DC 05/22/19 15:58 I have reviewed the current psychotropics carefully including drug interactions. Risk benefit ratio favors no change other than as noted in my dictated progress note. 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
--- NOTE | 2019-05-23 04:47 | NUR ---
Nsg Note: Patient in room at time of medication pass and assessments. Patient was confused. Insistent on leaving and couldn't sleep. PRN Trazodone given. No other notable behaviors at this time.
[2019-05-23] MEDS: LEVOTHYROXINE 125 MCG TABLET PO SCH (05:26)
[2019-05-23 06:18] VITALS: BP 153/71
[2019-05-23] MEDS: INSULIN LISPRO 300 UNITS/3 ML VIAL. SQ SCH ×3 (07:49→17:16)
[2019-05-23 08:04] LABS: BASO # 0.1 x10^3/uL (0.0-0.2); BASO % 1 % (0-3); EOS # 0.4 x10^3/uL (0.0-0.7); EOS % 3 % (0-3); HEMATOCRIT 40.4 % (36.0-47.0); HEMOGLOBIN 13.1 g/dL (12.0-15.5); LYMPH # 0.6 x10^3/uL (1.0-4.8); LYMPH % 5 % (24-48); MEAN CORPUSCULAR HEMOGLOBIN 28 pg (25-35); MEAN CORPUSCULAR HGB CONC 32 g/dL (31-37); MEAN CORPUSCULAR VOLUME 86 fL (79-100); MONO # 0.6 x10^3/uL (0.0-1.1); MONO % 5 % (0-9); NEUT % 86 % (31-73); PLATELET COUNT 272 x10^3/uL (140-400); RED BLOOD COUNT 4.68 x10^6/uL (3.50-5.40); RED CELL DISTRIBUTION WIDTH 16.5 % (11.5-14.5); WHITE BLOOD COUNT 12.8 x10^3/uL (4.0-11.0)
[2019-05-23] MEDS: CLOPIDOGREL BISULFATE 75 MG TABLET PO SCH (08:13)
[2019-05-23] MEDS: PANTOPRAZOLE 40 MG TABLET. PO SCH (08:14)
[2019-05-23] MEDS: CALCIUM CARBONATE 500 MG TABLET PO SCH (08:14)
[2019-05-23] MEDS: SERTRALINE 100 MG TABLET. PO SCH (08:14)
[2019-05-23] MEDS: ACETAMINOPHEN 500 MG TABLET PO SCH ×2 (08:14→20:42)
[2019-05-23] MEDS: hydroCHLOROthiazide 12.5 MG CAPSULE PO SCH (08:14)
[2019-05-23] MEDS: glipiZIDE 5 MG TABLET PO SCH ×2 (08:14→17:13)
[2019-05-23] MEDS: LOSARTAN 50 MG TABLET. PO SCH (08:14)
[2019-05-23 08:15] LABS: ALBUMIN 3.6 g/dL (3.4-5.0); ALBUMIN/GLOBULIN RATIO 0.9 (1.0-1.7); CALCIUM 9.2 mg/dL (8.5-10.1); CREATININE 0.7 mg/dL (0.6-1.0); GFR 81.1; POTASSIUM 4.4 mmol/L (3.5-5.1); TOTAL BILIRUBIN 0.6 mg/dL (0.2-1.0); TOTAL PROTEIN 7.5 g/dL (6.4-8.2)
[2019-05-23] MEDS: SPIRONOLACTONE 25 MG TABLET PO SCH (08:15)
--- NOTE | 2019-05-23 11:22 | NUR ---
Pt located in dining room this morning. Pleasantly confused and compliant with whole medications. No delusions noted. Pt currently sleeping in bed.
[2019-05-23 12:57] LABS: BILIRUBIN,URINE NEG (NEG); CLARITY,URINE CLEAR; COLOR,URINE YELLOW; GLUCOSE,URINE NEG (NEG)
[2019-05-23 12:58] LABS: BACTERIA,URINE 0 /HPF (0-FEW); NITRITE,URINE NEG (NEG); RBC,URINE 0 /HPF (0-2); SQUAMOUS EPITHELIAL CELL,UR FEW /LPF; UROBILINOGEN,URINE 0.2 mg/dL (0.2 mg/dL); WBC,URINE OCC /HPF (0-4)
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
--- NOTE | 2019-05-23 15:25 | NUR ---
Pharmacy Warfarin Dosing Note S:Pharmacy consulted to assist with anticoagulation therapy started 05/19/19 with target INR: 2-2.5 O:WENDY SCHWARTZ is a 78 year old F with Atrial Fibrillation DVT/PE [place] LABS: Last INR: 2.1 Last HGB: 13.1 Last HCT: 40.4 Last PLT: 272 Last dose of 6 mg given on 05/22/19 at 1600 Previous Regimen: Vitamin K given: Drug Interaction Changes: Same Interacting Drug Ongoing Drug Interactions: SERTRALINE A:INR Within desired Range. Target Range for this patient is: 2-2.5 P: Warfarin dose: 6 mg Today at 1600 Bridge Therapy: None . Next INR due 05/24/19 @ 0600 Pharmacy anticoagulation service will continue to follow. BK BATEMAN [facility], 05/23/19 1529
[2019-05-23 15:58] VITALS: BP 113/65
--- NOTE | 2019-05-23 16:14 | NUR ---
Attempted to complete home health referral to [facility]. However, [facility] does not service the [place] area. Completed referral to [facility] home health with request for start of care on 05/28/19. F/U appointment scheduled with PCP Dr. Berrios on 06/05/19 at 11:15am. Call placed to [facility] with intent to schedule out patient psychiatry appointment, left message with request for return phone call.
--- NOTE | 2019-05-23 16:52 | NUR ---
WEEKLY ACTIVITY THERAPY NOTE Date of Admission: 05/03/2019 Date of AT Assessment: 05/06/2019 Goal aimed: to increase relaxation and socialization Initial Goal: Pt. will participate in at least five Activity Therapy individual or group sessions before discharge. Goal changed 05/16: Pt. will participate in at least five Activity Therapy groups per week Weekly progress towards goal: exceeded, 01/10 Group participation level: varied Weekly highlights: enjoys music bingo Behaviors observed: social, more easily redirected this week, pleasantly confused (mentions needing to call parents and find car) Plan: no change to goal at this time Beneficial adaptations: verbal cues loudly spoken near ear, reassurance about family concerns, [place]
[2019-05-23] MEDS: WARFARIN 6 MG TABLET. PO SCH (17:13)
[2019-05-23] MEDS: ASPIRIN 81 MG TAB.CHEW PO SCH (20:42)
[2019-05-23] MEDS: ATORVASTATIN CALCIUM 20 MG TABLET PO SCH (20:42)
[2019-05-23] MEDS: DONEPEZIL HCL 10 MG TABLET PO SCH (20:42)
--- NOTE | 2019-05-23 20:52 | PDOC ---
Exam Note: Eren Note: Please also refer to the separate dictated note~for this date of service dictated separately.~Patient seen individually. Discussed the patient with Nursing staff reviewed the chart.~Reviewed interim history and current functioning. Reviewed vital signs,~Labs/ Radiology~and current medications noted below. Continue current treatment with the changes noted in the dictated addendum note Assessment: Vital Signs/I&O: Vital Signs Date Time Temp Pulse Resp B/P (MAP) Pulse Ox O2 Delivery O2 Flow Rate FiO2 05/23/19 15:58 97.8 68 20 113/65 (81) 95 Room Air I & O 05/22/19 05/22/19 05/23/19 15:00 23:00 07:00 Intake Total 960 ml 600 ml Balance 960 ml 600 ml Labs: Laboratory Tests Test 05/23/19 06:33 05/23/19 07:32 05/23/19 07:50 05/23/19 12:09 Prothrombin Time 21.6 SEC (9.4-11.4) H Prothrombin Time INR 2.1 (0.9-1.1) H Glucose (Fingerstick) 150 mg/dL (70-99) H 156 mg/dL (70-99) H White Blood Count 12.8 x10^3/uL (4.0-11.0) H Red Blood Count 4.68 x10^6/uL (3.50-5.40) Hemoglobin 13.1 g/dL (12.0-15.5) Hematocrit 40.4 % (36.0-47.0) Mean Corpuscular Volume 86 fL (79-100) Mean Corpuscular Hemoglobin 28 pg (25-35) Mean Corpuscular Hemoglobin Concent 32 g/dL (31-37) Red Cell Distribution Width 16.5 % (11.5-14.5) H Platelet Count 272 x10^3/uL (140-400) Neutrophils (%) (Auto) 86 % (31-73) H Lymphocytes (%) (Auto) 5 % (24-48) L Monocytes (%) (Auto) 5 % (0-9) Eosinophils (%) (Auto) 3 % (0-3) Basophils (%) (Auto) 1 % (0-3) Neutrophils # (Auto) 11.0 x10^3uL (1.8-7.7) H Lymphocytes # (Auto) 0.6 x10^3/uL (1.0-4.8) L Monocytes # (Auto) 0.6 x10^3/uL (0.0-1.1) Eosinophils # (Auto) 0.4 x10^3/uL (0.0-0.7) Basophils # (Auto) 0.1 x10^3/uL (0.0-0.2) Sodium Level 135 mmol/L (136-145) L Potassium Level 4.4 mmol/L (3.5-5.1) Chloride Level 100 mmol/L (98-107) Carbon Dioxide Level 24 mmol/L (21-32) Anion Gap 11 (6-14) Blood Urea Nitrogen 28 mg/dL (7-20) H Creatinine 0.7 mg/dL (0.6-1.0) Estimated GFR (Cockcroft-Gault) 81.1 BUN/Creatinine Ratio 40 (6-20) H Glucose Level 145 mg/dL (70-99) H Calcium Level 9.2 mg/dL (8.5-10.1) Total Bilirubin 0.6 mg/dL (0.2-1.0) Aspartate Amino Transferase (AST) 15 U/L (15-37) Alanine Aminotransferase (ALT) 20 U/L (14-59) Alkaline Phosphatase 96 U/L (46-116) Total Protein 7.5 g/dL (6.4-8.2) Albumin 3.6 g/dL (3.4-5.0) Albumin/Globulin Ratio 0.9 (1.0-1.7) L Test 05/23/19 12:35 05/23/19 17:07 05/23/19 19:31 Urine Collection Type Unknown Urine Color Yellow Urine Clarity Clear Urine pH 5.5 Urine Specific Jolon 1.020 Urine Protein Neg (NEG-TRACE) Urine Glucose (UA) Neg mg/dL (NEG) Urine Ketones (Stick) Neg mg/dL (NEG) Urine Blood Neg (NEG) Urine Nitrite Neg (NEG) Urine Bilirubin Neg (NEG) Urine Urobilinogen Dipstick 0.2 mg/dL (0.2 mg/dL) Urine Leukocyte Esterase Neg (NEG) Urine RBC 0 /HPF (0-2) Urine WBC Occ /HPF (0-4) Urine Squamous Epithelial Cells Few /LPF Urine Bacteria 0 /HPF (0-FEW) Glucose (Fingerstick) 160 mg/dL (70-99) H 138 mg/dL (70-99) H Current Medications: Meds: Current Medications Medications (Trade) Dose Ordered Sig/Margarita Route PRN Reason Start Time Stop Time Status Last Admin Dose Admin Warfarin Sodium (Coumadin) 6 mg DAILY16 PO 05/23/19 16:00 05/23/19 17:13 I have reviewed the current psychotropics carefully including drug interactions. Risk benefit ratio favors no change other than as noted in my dictated progress note. Diagnosis: Problems: (1) Anxiety disorder (2) Dementia, vascular, with delusions (3) Dementia, vascular, with depression (4) Dementia in Alzheimer's disease with delusions (5) Dementia in Alzheimer's disease with depression (6) Impulse control disorder YG CASTILLO MD May 23, 2019 20:52
--- NOTE | 2019-05-24 00:48 | NUR ---
Last evening pt went to bed early and has been sleeping most of this shift. When awaken for meds she took them whole without difficulty. When getting up to use the BR she has been sable on feet independent with toileting and goes back to bed. No behaviors this shift
[2019-05-24] MEDS: LEVOTHYROXINE 125 MCG TABLET PO SCH (05:46)
[2019-05-24 05:57] VITALS: BP 167/52
[2019-05-24] MEDS: INSULIN LISPRO 300 UNITS/3 ML VIAL. SQ SCH ×3 (08:00→17:00)
[2019-05-24] MEDS: CALCIUM CARBONATE 500 MG TABLET PO SCH (08:28)
[2019-05-24] MEDS: SERTRALINE 100 MG TABLET. PO SCH (08:28)
[2019-05-24] MEDS: ACETAMINOPHEN 500 MG TABLET PO SCH ×2 (08:28→19:52)
[2019-05-24] MEDS: PANTOPRAZOLE 40 MG TABLET. PO SCH (08:29)
[2019-05-24] MEDS: hydroCHLOROthiazide 12.5 MG CAPSULE PO SCH (08:29)
[2019-05-24] MEDS: SPIRONOLACTONE 25 MG TABLET PO SCH (08:29)
[2019-05-24] MEDS: CLOPIDOGREL BISULFATE 75 MG TABLET PO SCH (08:29)
[2019-05-24] MEDS: LOSARTAN 50 MG TABLET. PO SCH (08:29)
[2019-05-24] MEDS: glipiZIDE 5 MG TABLET PO SCH ×2 (08:29→17:22)
[2019-05-24] MEDS: traMADol 50 MG TABLET PO PRN (08:40)
--- NOTE | 2019-05-24 09:09 | NUR ---
Pharmacy Warfarin Dosing Note S:Pharmacy consulted to assist with anticoagulation therapy started 05/19/19 with target INR: 2-2.5 O:WENDY SCHWARTZ is a 78 year old F with Atrial Fibrillation DVT/PE Post [place] LABS: Last INR: 2.4 Last HGB: 13.1 Last HCT: 40.4 Last PLT: 272 Last dose of 6 mg given on 05/23/19 at 1716 Previous Regimen: Vitamin K given: Drug Interaction Changes: Same Interacting Drug Ongoing Drug Interactions: SERTRALINE A:INR Within desired Range. Target Range for this patient is: 2-2.5 P: Warfarin dose: 6 mg Daily at 1600 Bridge Therapy: None . Next INR due 05/25/19 am Pharmacy anticoagulation service will continue to follow. CECI LEONG, 05/24/19 0910
--- NOTE | 2019-05-24 13:52 | PN ---
DATE: 05/22/2019 PSYCHIATRIC PROGRESS NOTE This late entry, 05/22/2019, covers elements not covered in my initial note. SUBJECTIVE: I met with the patient evening of 05/22/2019. Per EFREN Gannon, the patient slept 6 hours previous night. She remains confused, but compliant accepting of her memory loss, less agitated. REVIEW OF SYSTEMS: No CV, , pulmonary, eye, ENT system symptoms on review. Reliability poor. MENTAL STATUS EXAM: Oriented to herself. Insight, judgment, recent and remote memory, attention, concentration, fund of knowledge poor, consistent with her diagnosis mentioned in my initial note. PLAN: No change from initial note. MAN Erika CASTILLO MD DR: OTTONIEL/sherif JOB#: [id number] / [id number]
[2019-05-24 16:12] VITALS: BP 118/60
--- NOTE | 2019-05-24 16:36 | NUR ---
Today patient has been calm, cooperative, appropriate and compliant. Pt is alert and oriented to self. Pt ambulates self around unit. Did take a nap today after lunch, otherwise has been in day room. Patient has improved since admission, no delusions or hallucinations and behavior appropriate. Plan is to continue medication management, encourage participation in groups and to discharge Monday.
[2019-05-24] MEDS: WARFARIN 6 MG TABLET. PO SCH (17:23)
--- NOTE | 2019-05-24 17:33 | PN ---
DATE: 05/23/2019 PSYCHIATRIC PROGRESS NOTE This late entry 05/23/2019 covers elements not covered in my initial note. SUBJECTIVE: I met with the patient evening of 05/23/2019. The patient slept 7 hours previous night. Per EFREN Loyd, the patient's UA is negative. She had some leukocytosis. We will defer to Dr. Sawyer. REVIEW OF SYSTEMS: No CV, , pulmonary, eye, ENT system symptoms on review. Reliability poor. MENTAL STATUS EXAM: Oriented to herself. Insight, judgment, recent and remote memory, attention, concentration, fund of knowledge poor, consistent with her diagnosis mentioned in my initial note. PLAN: No change from initial note. The patient is more accepting of her memory loss and I addressed this with her individually in the evening. MAN Erika CASTILLO MD DR: OTTONIEL/sherif JOB#: [id number] / [id number]
[2019-05-24] MEDS: DONEPEZIL HCL 10 MG TABLET PO SCH (19:52)
[2019-05-24] MEDS: ATORVASTATIN CALCIUM 20 MG TABLET PO SCH (19:52)
[2019-05-24] MEDS: ASPIRIN 81 MG TAB.CHEW PO SCH (19:52)
--- NOTE | 2019-05-24 20:51 | PDOC ---
Exam Note: Eren Note: Please also refer to the separate dictated note~for this date of service dictated separately.~Patient seen individually. Discussed the patient with Nursing staff reviewed the chart.~Reviewed interim history and current functioning. Reviewed vital signs,~Labs/ Radiology~and current medications noted below. Continue current treatment with the changes noted in the dictated addendum note Assessment: Vital Signs/I&O: Vital Signs Date Time Temp Pulse Resp B/P (MAP) Pulse Ox O2 Delivery O2 Flow Rate FiO2 05/24/19 16:12 97.4 66 16 118/60 (79) 93 05/24/19 09:40 Room Air I & O 05/23/19 05/23/19 05/24/19 15:00 23:00 07:00 Intake Total 1310 ml 480 ml 240 ml Balance 1310 ml 480 ml 240 ml Labs: Laboratory Tests Test 05/24/19 06:10 05/24/19 07:29 05/24/19 11:41 05/24/19 17:10 Prothrombin Time 24.5 SEC (9.4-11.4) H Prothrombin Time INR 2.4 (0.9-1.1) H Glucose (Fingerstick) 112 mg/dL (70-99) H 84 mg/dL (70-99) 115 mg/dL (70-99) H Test 05/24/19 19:11 Glucose (Fingerstick) 248 mg/dL (70-99) H Current Medications: I have reviewed the current psychotropics carefully including drug interactions. Risk benefit ratio favors no change other than as noted in my dictated progress note. Diagnosis: Problems: (1) Anxiety disorder (2) Dementia, vascular, with delusions (3) Dementia, vascular, with depression (4) Dementia in Alzheimer's disease with delusions (5) Dementia in Alzheimer's disease with depression (6) Impulse control disorder YG CASTILLO MD May 24, 2019 20:51
--- NOTE | 2019-05-24 22:12 | NUR ---
Pt has been wandering unit all evening. Pleasantly confused and compliant with whole medications. Pt currently sleeping in bed.
[2019-05-25] MEDS: LEVOTHYROXINE 125 MCG TABLET PO SCH (05:39)
[2019-05-25 05:57] VITALS: BP 158/81
[2019-05-25] MEDS: glipiZIDE 5 MG TABLET PO SCH ×2 (08:30→17:04)
[2019-05-25] MEDS: SPIRONOLACTONE 25 MG TABLET PO SCH (08:31)
[2019-05-25] MEDS: CLOPIDOGREL BISULFATE 75 MG TABLET PO SCH (08:31)
[2019-05-25] MEDS: hydroCHLOROthiazide 12.5 MG CAPSULE PO SCH (08:31)
[2019-05-25] MEDS: LOSARTAN 50 MG TABLET. PO SCH (08:31)
[2019-05-25] MEDS: CALCIUM CARBONATE 500 MG TABLET PO SCH (08:31)
[2019-05-25] MEDS: PANTOPRAZOLE 40 MG TABLET. PO SCH (08:31)
[2019-05-25] MEDS: SERTRALINE 100 MG TABLET. PO SCH (08:32)
[2019-05-25] MEDS: ACETAMINOPHEN 500 MG TABLET PO SCH ×2 (08:32→20:58)
[2019-05-25] MEDS: INSULIN LISPRO 300 UNITS/3 ML VIAL. SQ SCH ×3 (08:34→17:04)
--- NOTE | 2019-05-25 11:09 | NUR ---
She is compliant with medication and her assessment. Pt is calm, cooperative, confused, compliant. No agitation or aggression, no hallucinations noted, pt is delusional that she needs to find her parents.
[2019-05-25 15:21] VITALS: BP 113/65
[2019-05-25] MEDS: WARFARIN 6 MG TABLET. PO SCH (17:03)
--- NOTE | 2019-05-25 20:47 | PDOC ---
Exam Note: Eren Note: Please also refer to the separate dictated note~for this date of service dictated separately.~Patient seen individually. Discussed the patient with Nursing staff reviewed the chart.~Reviewed interim history and current functioning. Reviewed vital signs,~Labs/ Radiology~and current medications noted below. Continue current treatment with the changes noted in the dictated addendum note Assessment: Vital Signs/I&O: Vital Signs Date Time Temp Pulse Resp B/P (MAP) Pulse Ox O2 Delivery O2 Flow Rate FiO2 05/25/19 15:21 97.5 66 20 113/65 (81) 98 05/25/19 05:57 Room Air I & O 05/24/19 05/24/19 05/25/19 15:00 23:00 07:00 Intake Total 960 ml 480 ml Balance 960 ml 480 ml Labs: Laboratory Tests Test 05/25/19 07:23 05/25/19 08:10 05/25/19 11:35 05/25/19 16:41 Glucose (Fingerstick) 136 mg/dL (70-99) H 168 mg/dL (70-99) H 77 mg/dL (70-99) Prothrombin Time 20.1 SEC (9.4-11.4) H Prothrombin Time INR 1.9 (0.9-1.1) H Test 05/25/19 19:21 Glucose (Fingerstick) 193 mg/dL (70-99) H Current Medications: I have reviewed the current psychotropics carefully including drug interactions. Risk benefit ratio favors no change other than as noted in my dictated progress note. Diagnosis: Problems: (1) Anxiety disorder (2) Dementia, vascular, with delusions (3) Dementia, vascular, with depression (4) Dementia in Alzheimer's disease with delusions (5) Dementia in Alzheimer's disease with depression (6) Impulse control disorder YG CASTILLO MD May 25, 2019 20:47
[2019-05-25] MEDS: ASPIRIN 81 MG TAB.CHEW PO SCH (20:58)
[2019-05-25] MEDS: DONEPEZIL HCL 10 MG TABLET PO SCH (20:58)
[2019-05-25] MEDS: ATORVASTATIN CALCIUM 20 MG TABLET PO SCH (20:58)
--- NOTE | 2019-05-26 00:05 | NUR ---
Nursing Note Pt confused pleasantly, but cooperative and compliant with meds. Denies pain or other complaints, is social with peers, not delusional this pm.
[2019-05-26 05:38] VITALS: BP 148/70
[2019-05-26] MEDS: LEVOTHYROXINE 125 MCG TABLET PO SCH (06:31)
[2019-05-26] MEDS: glipiZIDE 5 MG TABLET PO SCH ×2 (08:35→16:41)
[2019-05-26] MEDS: INSULIN LISPRO 300 UNITS/3 ML VIAL. SQ SCH ×3 (08:35→17:08)
[2019-05-26] MEDS: LOSARTAN 50 MG TABLET. PO SCH (08:36)
[2019-05-26] MEDS: SPIRONOLACTONE 25 MG TABLET PO SCH (08:36)
[2019-05-26] MEDS: CALCIUM CARBONATE 500 MG TABLET PO SCH (08:37)
[2019-05-26] MEDS: PANTOPRAZOLE 40 MG TABLET. PO SCH (08:37)
[2019-05-26] MEDS: ACETAMINOPHEN 500 MG TABLET PO SCH ×2 (08:37→19:36)
[2019-05-26] MEDS: hydroCHLOROthiazide 12.5 MG CAPSULE PO SCH (08:37)
[2019-05-26] MEDS: CLOPIDOGREL BISULFATE 75 MG TABLET PO SCH (08:37)
[2019-05-26] MEDS: SERTRALINE 100 MG TABLET. PO SCH (08:37)
--- NOTE | 2019-05-26 10:01 | NUR ---
She is compliant with medication and her assessment. Pt is calm, cooperative, confused, compliant. No agitation or aggression, no hallucinations at this time. Pt does often ask "how do I get out of here."
--- NOTE | 2019-05-26 12:14 | NUR ---
Pharmacy Warfarin Dosing Note S:Pharmacy consulted to assist with anticoagulation therapy started 05/19/19 with target INR: 2-2.5 O:WENDY SCHWARTZ is a 78 year old F with Atrial Fibrillation DVT/PE Post [place] LABS: Last INR: 2.1 Last HGB: 13.1 Last HCT: 40.4 Last PLT: 272 Last dose of 6 mg given on 05/25/19 at 1703 Previous Regimen: Vitamin K given: Drug Interaction Changes: Same Interacting Drug Ongoing Drug Interactions: SERTRALINE A:INR Within desired Range. Target Range for this patient is: 2-2.5 P: Warfarin dose: 6 mg Today at 1600 Bridge Therapy: None . Next INR due 05/27/2019 Pharmacy anticoagulation service will continue to follow. KOLE CRUZ, 05/26/19 1215
[2019-05-26 15:24] VITALS: BP 122/84
[2019-05-26] MEDS: WARFARIN 6 MG TABLET. PO SCH (16:41)
[2019-05-26] MEDS: ASPIRIN 81 MG TAB.CHEW PO SCH (19:35)
[2019-05-26] MEDS: DONEPEZIL HCL 10 MG TABLET PO SCH (19:35)
[2019-05-26] MEDS: ATORVASTATIN CALCIUM 20 MG TABLET PO SCH (19:36)
--- NOTE | 2019-05-26 20:51 | PDOC ---
Exam Note: Eren Note: Please also refer to the separate dictated note~for this date of service dictated separately.~Patient seen individually. Discussed the patient with Nursing staff reviewed the chart.~Reviewed interim history and current functioning. Reviewed vital signs,~Labs/ Radiology~and current medications noted below. Continue current treatment with the changes noted in the dictated addendum note Assessment: Vital Signs/I&O: Vital Signs Date Time Temp Pulse Resp B/P (MAP) Pulse Ox O2 Delivery O2 Flow Rate FiO2 05/26/19 15:24 98.2 76 18 122/84 (97) 97 05/25/19 05:57 Room Air I & O 05/25/19 05/25/19 05/26/19 15:00 23:00 07:00 Intake Total 720 ml 480 ml Balance 720 ml 480 ml Labs: Laboratory Tests Test 05/26/19 07:44 05/26/19 08:19 05/26/19 11:59 05/26/19 16:47 Glucose (Fingerstick) 121 mg/dL (70-99) H 93 mg/dL (70-99) 282 mg/dL (70-99) H Prothrombin Time 21.8 SEC (9.4-11.4) H Prothrombin Time INR 2.1 (0.9-1.1) H Test 05/26/19 19:24 Glucose (Fingerstick) 117 mg/dL (70-99) H Current Medications: I have reviewed the current psychotropics carefully including drug interactions. Risk benefit ratio favors no change other than as noted in my dictated progress note. Diagnosis: Problems: (1) Anxiety disorder (2) Dementia, vascular, with delusions (3) Dementia, vascular, with depression (4) Dementia in Alzheimer's disease with delusions (5) Dementia in Alzheimer's disease with depression (6) Impulse control disorder YG CASTILLO MD May 26, 2019 20:51
--- NOTE | 2019-05-26 22:00 | NUR ---
Patient is in the day room on assumption of care. She is disorganized, confused. Calm, cooperative and compliant with medication and assessment. No agitation. No complaints of pain or discomfort. Denies SI.
--- NOTE | 2019-05-26 23:14 | PN ---
DATE: 05/25/2019 PSYCHIATRIC PROGRESS NOTE This late entry, 05/25/2019, covers elements not covered in my initial note. SUBJECTIVE: I met with the patient evening of 05/25/2019. The patient slept 8 hours previous night. She remains confused, but redirectable, pleasant, able to accept her memory loss, many questions about it as I met with her. REVIEW OF SYSTEMS: No CV, , pulmonary, eye, ENT system symptoms on review. Reliability poor. MENTAL STATUS EXAM: Oriented to herself. Insight, judgment, recent and remote memory, attention, concentration, fund of knowledge poor, consistent with her diagnosis mentioned in my initial note. PLAN: No change from initial note. YG CASTILLO MD DR: OTTONIEL/sherif JOB#: [id number] / [id number]
--- NOTE | 2019-05-26 23:14 | PN ---
DATE: 05/24/2019 PSYCHIATRIC PROGRESS NOTE This late entry 05/24/2019 covers elements not covered in my initial note. SUBJECTIVE: I met with the patient evening of 05/24/2019. Per Soledad RN, the patient slept 8-1/2 hours previous night. She remains confused, somewhat anxious, but redirectable. REVIEW OF SYSTEMS: No CV, , pulmonary, eye, ENT system symptoms on review. Reliability poor. MENTAL STATUS EXAM: Oriented to herself. Insight, judgment, recent and remote memory, attention, concentration, fund of knowledge poor, consistent with her diagnosis mentioned in my initial note. PLAN: No change from initial note. YG CASTILLO MD DR: OTTONIEL/sherif JOB#: [id number] / [id number]
[2019-05-27] MEDS: LEVOTHYROXINE 125 MCG TABLET PO SCH (05:32)
[2019-05-27 05:56] VITALS: BP 160/72
[2019-05-27 07:45] LABS: BASO % 1 % (0-3); EOS # 0.6 x10^3/uL (0.0-0.7); EOS % 6 % (0-3); HEMATOCRIT 40.6 % (36.0-47.0); LYMPH # 0.8 x10^3/uL (1.0-4.8); LYMPH % 9 % (24-48); MEAN CORPUSCULAR HEMOGLOBIN 28 pg (25-35); MEAN CORPUSCULAR HGB CONC 32 g/dL (31-37); MEAN CORPUSCULAR VOLUME 88 fL (79-100); MONO # 0.5 x10^3/uL (0.0-1.1); MONO % 6 % (0-9); NEUT # 7.2 x10^3uL (1.8-7.7); NEUT % 79 % (31-73); PLATELET COUNT 280 x10^3/uL (140-400); RED CELL DISTRIBUTION WIDTH 16.4 % (11.5-14.5); WHITE BLOOD COUNT 9.2 x10^3/uL (4.0-11.0)
[2019-05-27 08:03] LABS: ALBUMIN 3.6 g/dL (3.4-5.0); CREATININE 0.6 mg/dL (0.6-1.0); GFR 96.9; POTASSIUM 4.6 mmol/L (3.5-5.1); TOTAL BILIRUBIN 0.4 mg/dL (0.2-1.0); TOTAL PROTEIN 7.2 g/dL (6.4-8.2)
--- NOTE | 2019-05-27 08:19 | NUR ---
Pharmacy Warfarin Dosing Note S:Pharmacy consulted to assist with anticoagulation therapy started 05/19/19 with target INR: 2-2.5 O:WENDY SCHWARTZ is a 78 year old F with Atrial Fibrillation DVT/PE Post [place] LABS: Last INR: 2.2 Last HGB: 13 Last HCT: 40.6 Last PLT: 280 Last dose of 6 mg given on 05/26/19 at 1641 Previous Regimen: Vitamin K given: Drug Interaction Changes: Same Interacting Drug Ongoing Drug Interactions: SERTRALINE A:INR Within desired Range. Target Range for this patient is: 2-2.5 P: Warfarin dose: 6 mg Daily Bridge Therapy: None . Next INR due 05/29 Pharmacy anticoagulation service will continue to follow. LILLIE BARROW [facility], 05/27/19 0819
[2019-05-27] MEDS: INSULIN LISPRO 300 UNITS/3 ML VIAL. SQ SCH ×2 (08:21→12:18)
[2019-05-27] MEDS: SPIRONOLACTONE 25 MG TABLET PO SCH (08:23)
[2019-05-27] MEDS: glipiZIDE 5 MG TABLET PO SCH (08:23)
[2019-05-27] MEDS: LOSARTAN 50 MG TABLET. PO SCH (08:24)
[2019-05-27] MEDS: hydroCHLOROthiazide 12.5 MG CAPSULE PO SCH (08:24)
[2019-05-27] MEDS: CALCIUM CARBONATE 500 MG TABLET PO SCH (08:24)
[2019-05-27] MEDS: CLOPIDOGREL BISULFATE 75 MG TABLET PO SCH (08:25)
[2019-05-27] MEDS: SERTRALINE 100 MG TABLET. PO SCH (08:25)
[2019-05-27] MEDS: PANTOPRAZOLE 40 MG TABLET. PO SCH (08:25)
[2019-05-27] MEDS: ACETAMINOPHEN 500 MG TABLET PO SCH (08:25)
--- NOTE | 2019-05-27 08:29 | NUR ---
[facility] Social Work Discharge Planning Form Patient Name WENDY SCHWARTZ Admit Date: 05/03/2019 DISCHARGE PLAN Discharge Destination: Home with family Care Assessment: completed on 05/21/2019 Level II Assessment: n/a Transportation: Family will transport on 05/27/2019 at 11am. Special Instructions/Notes: Wendy has an appointment scheduled with Dr. Juan M Berrios on 06/05/2019 at 11:15am, located at [address] [address]. DISCHARGE TO HOME: Address: [address] [address] Responsible Democrat: Freddy Schwartz, son/POA, Pharmacy: [facility], Psychiatrist/Mental Health: Attempting to get an appointment at [facility], Primary Care: Dr. Juan M Berrios, , (fax) Home Health: [facility], , referral has been completed with request for start of care on 05/28/2019
--- NOTE | 2019-05-27 09:33 | NUR ---
No agitation or aggression, no hallucinations at this time. She is compliant with medication and her assessment. Pt is calm, cooperative, confused, and compliant.
--- NOTE | 2019-05-27 10:11 | NUR ---
Call placed to [facility] to confirm they received the home health referral faxed on 05/23/19. They confirmed they received the referral and will start care on 05/28/2019. Call placed to [facility] with intent to schedule follow up out patient psychiatry appointment for medication management. Left message with request for return phone call.
[2019-05-27] MEDS ORDERED: INSU100I11 SQ (10:43)
[2019-05-27] MEDS ORDERED: OLAN5TAB5 PO ×2 (10:48→10:49)
[2019-05-27] MEDS ORDERED: SERT100T PO (10:50)
[2019-05-27] MEDS ORDERED: TRAZ-120 PO (10:51)
--- NOTE | 2019-05-27 14:06 | NUR ---
Chloe has an appointment scheduled with Dr. Rosas, psychiatrist at [facility], on 07/12/2019 at 1:30pm. Noted appointment on discharge instruction sheet.
[2019-05-27 15:00] VITALS: BP 156/74
--- NOTE | 2019-05-27 15:40 | NUR ---
Transition Record was faxed to follow-up provider with the following elements: Reason for admission, procedures, tests, principal diagnosis, pending studies, patient instructions, 28/11 contact information for unit, phone number to obtain pending test results, plan for follow-up care, physician follow-up, advanced directive information, and medication list with dose, duration and instructions. This information was included in the following documents: History and physical, lab results, study results, progress notes, social work planning form, DC instruction form, patient visit summary, and medication reconciliation form. Date & time record faxed:05/27/2019 13[facility] 05/27/[address] Kobe Berrios 05/27/2019 [facility] Behavioral Health Record faxed to: see above Record discussed with/ report given to: Mehran Hayes- Discussed medications medication administration administration, plan of care and that pt is not to be left alone as Behavioral Health Team has recommended memory care placement for pts safety. DPOA verbalized acceptance and understanding. Medications called into Trace at [facility] pharmacy.
--- NOTE | 2019-05-27 19:00 | DS ---
DATE OF DISCHARGE: 05/27/2019 DISCHARGE SUMMARY/PSYCHIATRIC PROGRESS NOTE. REASON FOR ADMISSION: Please refer to the admission history for details. Briefly, the patient is a 78-year-old female referred to us from the [facility] Emergency Room where she presented from home on account of increased confusion, worsening over the past few weeks. She was leaving home entering the neighbor's houses, swearing at family, delusional, thinking that there was a large sum of money that the family is hiding from her and that she was entitled to. She states she wants to slit her 's throat. She threatened to attack family with scissors, delusional, thinking she was a nurse, refusing medications. She had failed outpatient psychiatric interventions resulting in this referral to us from the Emergency Room. SIGNIFICANT FINDINGS AND CLINICAL COURSE: Following admission, the patient was seen daily individually by myself from a psychiatric standpoint, medical followup per Dr. Sawyer. The patient was quite confused, agitated with marked mood lability, paranoid. Adjustments were made in her psychotropics and she seemed to respond to a combination of Zyprexa 5 mg at bedtime and 2.5 mg a.m., Aricept 10 mg at bedtime, Zoloft 100 mg a day, Zyprexa p.r.n., trazodone p.r.n. insomnia. We had recommended to the family that the patient needed a placement given the level of her confusion, memory loss, but the family were insistent on trying her back home from the hospital and if she fail this, they would then look for alternate placements. REVIEW OF SYSTEMS: Prior to discharge on 05/27/2019, no CV, , pulmonary, eye, ENT system symptoms on review. Reliability poor. MENTAL STATUS EXAM: Oriented to herself. Insight, judgment, recent and remote memory, attention, concentration, fund of knowledge poor, consistent with her diagnosis. CONDITION AT DISCHARGE: Improved. FINAL DIAGNOSES: Major neurocognitive disorder, Alzheimer, vascular with delusion, depression, behavioral disturbance; anxiety disorder, unspecified; impulse control disorder, unspecified. Rest unchanged from admission. DISCHARGE MEDICATIONS: Please refer to the MRAD. DISCHARGE INSTRUCTIONS: Outpatient psychiatric and medical followup as arranged by Social Service staff. Time for discharge day management greater than 30 minutes. MAN Erika CASTILLO MD DR: Tremaine JOB#: [id number] / [id number]
--- NOTE | 2019-05-27 20:42 | PDOC ---
Exam Note: Eren Note: Please also refer to the separate dictated note~for this date of service dictated separately.~Patient seen individually. Discussed the patient with Nursing staff reviewed the chart.~Reviewed interim history and current functioning. Reviewed vital signs,~Labs/ Radiology~and current medications noted below. Continue current treatment with the changes noted in the dictated addendum note Assessment: Vital Signs/I&O: Vital Signs Date Time Temp Pulse Resp B/P (MAP) Pulse Ox O2 Delivery O2 Flow Rate FiO2 05/27/19 15:00 98.2 67 16 156/74 (101) 94 05/25/19 05:57 Room Air I & O 05/26/19 05/26/19 05/27/19 15:00 23:00 07:00 Intake Total 720 ml 360 ml 120 ml Balance 720 ml 360 ml 120 ml Labs: Laboratory Tests Test 05/27/19 07:19 05/27/19 07:38 05/27/19 12:01 White Blood Count 9.2 x10^3/uL (4.0-11.0) Red Blood Count 4.60 x10^6/uL (3.50-5.40) Hemoglobin 13.0 g/dL (12.0-15.5) Hematocrit 40.6 % (36.0-47.0) Mean Corpuscular Volume 88 fL (79-100) Mean Corpuscular Hemoglobin 28 pg (25-35) Mean Corpuscular Hemoglobin Concent 32 g/dL (31-37) Red Cell Distribution Width 16.4 % (11.5-14.5) H Platelet Count 280 x10^3/uL (140-400) Neutrophils (%) (Auto) 79 % (31-73) H Lymphocytes (%) (Auto) 9 % (24-48) L Monocytes (%) (Auto) 6 % (0-9) Eosinophils (%) (Auto) 6 % (0-3) H Basophils (%) (Auto) 1 % (0-3) Neutrophils # (Auto) 7.2 x10^3uL (1.8-7.7) Lymphocytes # (Auto) 0.8 x10^3/uL (1.0-4.8) L Monocytes # (Auto) 0.5 x10^3/uL (0.0-1.1) Eosinophils # (Auto) 0.6 x10^3/uL (0.0-0.7) Basophils # (Auto) 0.0 x10^3/uL (0.0-0.2) Prothrombin Time 23.3 SEC (9.4-11.4) H Prothrombin Time INR 2.2 (0.9-1.1) H Sodium Level 138 mmol/L (136-145) Potassium Level 4.6 mmol/L (3.5-5.1) Chloride Level 101 mmol/L (98-107) Carbon Dioxide Level 27 mmol/L (21-32) Anion Gap 10 (6-14) Blood Urea Nitrogen 21 mg/dL (7-20) H Creatinine 0.6 mg/dL (0.6-1.0) Estimated GFR (Cockcroft-Gault) 96.9 BUN/Creatinine Ratio 35 (6-20) H Glucose Level 132 mg/dL (70-99) H Calcium Level 9.0 mg/dL (8.5-10.1) Total Bilirubin 0.4 mg/dL (0.2-1.0) Aspartate Amino Transferase (AST) 16 U/L (15-37) Alanine Aminotransferase (ALT) 20 U/L (14-59) Alkaline Phosphatase 97 U/L (46-116) Total Protein 7.2 g/dL (6.4-8.2) Albumin 3.6 g/dL (3.4-5.0) Albumin/Globulin Ratio 1.0 (1.0-1.7) Glucose (Fingerstick) 138 mg/dL (70-99) H 111 mg/dL (70-99) H Current Medications: I have reviewed the current psychotropics carefully including drug interactions. Risk benefit ratio favors no change other than as noted in my dictated progress note. 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
--- NOTE | 2019-05-27 23:34 | PN ---
DATE: 05/26/2019 PSYCHIATRIC PROGRESS NOTE This late entry 05/26/2019 covers the elements not covered in my initial note. SUBJECTIVE: I met with the patient in the evening of 05/26/2019. Per EFREN Ricketts, the patient slept 6-1/2 hours previous night. The patient remains confused, but pleasant, able to accept her memory loss, seems to have a sense of humor about not being able to find her room and quite jovial about this accepting as I met with her individually in the evening. REVIEW OF SYSTEMS: No CV, , pulmonary, eye, ENT system symptoms on review. Reliability poor. MENTAL STATUS EXAM: Oriented to herself. Insight, judgment, recent and remote memory, attention, concentration, fund of knowledge poor, consistent with her diagnosis mentioned in my initial note. PLAN: No change from initial note with possible transition to a lower level of care on 05/27/2019. YG CASTILLO MD DR: OTTONIEL/sherif JOB#: [id number] / [id number]
== END 2019-05-27 15:40 | disposition home health service (06) | DRG 885 ==
LOC: GEROPSY 18:27
PROVIDERS: ADMIT Psychiatry & Neurology Psychiatry; ATTEND Psychiatry & Neurology Psychiatry
DX: F31.2 Bipolar disorder, current episode manic severe with psychotic features (principal); F01.50 Vascular dementia, unspecified severity, without behavioral disturbance, psychotic disturbance, mood disturbance, and anxiety; G30.9 Alzheimer's disease, unspecified; F17.210 Nicotine dependence, cigarettes, uncomplicated; I48.91 Unspecified atrial fibrillation; J44.9 Chronic obstructive pulmonary disease, unspecified; I25.10 Atherosclerotic heart disease of native coronary artery without angina pectoris; E03.9 Hypothyroidism, unspecified; I10 Essential (primary) hypertension; E78.5 Hyperlipidemia, unspecified; E11.9 Type 2 diabetes mellitus without complications; Z66 Do not resuscitate; F41.9 Anxiety disorder, unspecified; F63.9 Impulse disorder, unspecified; F02.80 Dementia in other diseases classified elsewhere, unspecified severity, without behavioral disturbance, psychotic disturbance, mood disturbance, and anxiety; R79.1 Abnormal coagulation profile; H35.30 Unspecified macular degeneration; D72.829 Elevated white blood cell count, unspecified; L25.9 Unspecified contact dermatitis, unspecified cause; I25.2 Old myocardial infarction; Z79.01 Long term (current) use of anticoagulants; Z79.899 Other long term (current) drug therapy; Z85.51 Personal history of malignant neoplasm of bladder; Z86.718 Personal history of other venous thrombosis and embolism; Z88.8 Allergy status to other drugs, medicaments and biological substances; Z86.73 Personal history of transient ischemic attack (TIA), and cerebral infarction without residual deficits; Z82.49 Family history of ischemic heart disease and other diseases of the circulatory system
CPT/HCPCS: 36415; 80053; 80061; 81001; 82306; 82607; 82947; 83036; 83540; 83550; 83735; 84436; 84443; 84480; 85007; 85025; 85610; 86592; 87086; 90471; 90686; 93005; J1815; 97110; 97116